=== PATIENT | male | born 1940 | race Caucasian/White ===

== ENCOUNTER 2020-07-15 11:29 | Emergency (ER) | payer MEDICARE, OTHER ==
[2020-07-15] MEDS ORDERED: SODIUM CHLORIDE 0.9% 1,000 ML IV STA (11:47)
[2020-07-15] MEDS ORDERED: ONDANSETRON 4 MG/2 ML VIAL IVP STA (11:47)
[2020-07-15] MEDS ORDERED: HYDROmorphone 0.5 MG/0.5 ML SYRINGE IVP STA (11:47)
[2020-07-15 12:09] LABS: Basophils # (A) 0.1 k/uL (0-0.2); Basophils % (A) 1 %; Eosinophils # (A) 0.4 k/uL (0-0.7); Eosinophils % (A) 7 %; HCT 43.8 % (39.0-53.0); HGB 14.9 gm/dL (13.0-17.5); Lymphocytes # (A) 1.1 k/uL (1.0-4.8); Lymphocytes % (A) 20 %; MCH 32.6 pg (25.0-35.0); MCV 96.1 fL (80.0-100.0); Mean Platelet Volume 7.5; Monocytes # (A) 0.4 k/uL (0-1.0); Monocytes % (A) 7 %; Neutrophils # (A) 3.6 k/uL (1.3-7.7); Neutrophils % (A) 62 %; Platelet Count 245 k/uL (150-450); RBC 4.56 m/uL (4.30-5.90); RDW 12.3 % (11.5-15.5); WBC 5.8 k/uL (3.8-10.6)
[2020-07-15 12:18] LABS: Amorphous Sediment,Urine Occasional /hpf; Appearance,Urine Turbid (Clear); Bacteria,Urine Occasional /hpf; Bilirubin,Urine Negative (Negative); Blood,Urine Large (Negative); Color,Urine Yellow; Glucose,Urine (UA) Negative (Negative); Ketones,Urine Negative (Negative); Leukocyte Esterase,Urine Small (Negative); Nitrite,Urine Negative (Negative); Protein,Urine 1+ (Negative); RBC,Urine >182 /hpf (0-5); Specific Gravity,Urine 1.014 (1.001-1.035); Urobilinogen,Urine <2.0 mg/dL (<2.0); WBC,Urine 56 /hpf (0-5)
[2020-07-15 12:19] LABS: Albumin 4.5 g/dL (3.5-5.0); Calcium 10.1 mg/dL (8.4-10.2); Total Bilirubin 0.7 mg/dL (0.2-1.3); Total Protein 7.5 g/dL (6.3-8.2)
--- NOTE | 2020-07-15 12:34 | XR ---
EXAMINATION TYPE: XR KUB DATE OF EXAM: 07/15/2020 Comparison: 05/20/2016 Clinical History: 80-year-old male abdominal pain Findings: Osteopenia and a severe levoconvex scoliotic deformity of the lumbar spine. No evidence for free intraperitoneal air. Nonobstructive bowel gas pattern. No dilated small bowel or air-fluid levels. There is moderate stool wording. Possible 4 mm right renal calculus. Some prostatic calcifications are also present in the low midline pelvis. Impression: 1. No evidence for free air or bowel obstruction. 2. Moderate stool burden. 3. Possible 4 mm right renal calculus.
[2020-07-15] MEDS ORDERED: KETOROLAC 15 MG/ML 1 ML VIAL IVP STA ×2 (12:39→14:13)
--- NOTE | 2020-07-15 13:24 | ED ---
General Adult HPI - General Chief complaint: Urogenital Stated complaint: Kidney Stone Time Seen by Provider: 07/15/20 11:37 Source: patient, family, RN notes reviewed Mode of arrival: ambulatory Limitations: no limitations - History of Present Illness Initial comments: 80-year-old male with a past medical history of hyperlipidemia presents to the emergency room for a chief complaint of right flank pain 45 minutes. Patient reports that he has a pain in the right flank that radiates into the right lower abdomen. States he recently had a CAT scan and did have a stone in one of his kidneys but was unsure which kidney. Patient believes he may have had a kidney stone before because he did have similar pain prior to this at one time. He admits to nausea right now, denies vomiting. Denies diarrhea. Denies fevers or chills.Patient has no other complaints at this time including shortness of breath, chest pain, abdominal pain, nausea or vomiting, headache, or visual changes. - Related Data Home Medications Medication Instructions Recorded Confirmed Brinzolamide/Brimonidine Tart 1 drop BOTH EYES TID 05/20/16 07/15/20 [Simbrinza 1%-0.2% Eye Drops] Latanoprost [Xalatan 0.005%] 1 drop LEFT EYE HS 05/20/16 07/15/20 Atorvastatin [Lipitor] 40 mg PO Q48H 07/15/20 07/15/20 Esomeprazole Magnesium [NexIUM 20 mg PO Q48H 07/15/20 07/15/20 24Hr] Famotidine 40 mg PO Q48H 07/15/20 07/15/20 Previous Rx's Medication Instructions Recorded HYDROcodone/APAP 5-325MG [[place] 1 tab PO Q6HR PRN #10 tab 07/15/20 5-325] Ondansetron [Zofran ODT] 4 mg PO Q8HR PRN #15 tab 07/15/20 Tamsulosin [Flomax] 0.4 mg PO DAILY #14 cap 07/15/20 Allergies Allergy/AdvReac Type Severity Reaction Status Date / Time No Known Allergies Allergy Verified 07/15/20 12:48 Review of Systems ROS Statement: Those systems with pertinent positive or pertinent negative responses have been documented in the HPI. ROS Other: All systems not noted in ROS Statement are negative. Past Medical History Past Medical History: Hyperlipidemia Additional Past Medical History / Comment(s): Glaucoma; Scoliosis History of Any Multi-Drug Resistant Organisms: None Reported Date of last positivie culture/infection: 2013 MDRO Source:: urine Past Surgical History: Hernia Repair Additional Past Surgical History / Comment(s): Valve in left eye for glaucoma; TURP Past Anesthesia/Blood Transfusion Reactions: No Reported Reaction Past Psychological History: No Psychological Hx Reported Smoking Status: Never smoker Past Alcohol Use History: Daily Past Drug Use History: None Reported - Past Family History Father Family Medical History: Dementia Additional Family Medical History / Comment(s): Father of parkinson's at the age of 82yrs. Mother Family Medical History: Dementia Additional Family Medical History / Comment(s): Mother at the age of 80yrs. General Exam Limitations: no limitations General appearance: alert, in no apparent distress Head exam: Present: atraumatic, normocephalic, normal inspection Eye exam: Present: normal appearance, PERRL, EOMI. Absent: scleral icterus, conjunctival injection, periorbital swelling ENT exam: Present: normal exam, mucous membranes moist Neck exam: Present: normal inspection, full ROM. Absent: tenderness, meningismus Respiratory exam: Present: normal lung sounds bilaterally. Absent: respiratory distress, wheezes, rales, rhonchi, stridor Cardiovascular Exam: Present: regular rate, normal rhythm, normal heart sounds. Absent: systolic murmur, diastolic murmur, rubs, gallop, clicks GI/Abdominal exam: Present: soft, normal bowel sounds. Absent: distended, tenderness, guarding, rebound, rigid Back exam: Present: CVA tenderness (R). Absent: CVA tenderness (L) Course Vital Signs 07/15/20 11:32 Temperature 98.2 F Pulse Rate 87 Respiratory 18 Rate Blood Pressure 148/81 O2 Sat by Pulse 99 Oximetry Medical Decision Making - Medical Decision Making Vitals are stable. CBC CMP unremarkable. Urinalysis does show red blood cells with associated white blood cells. No leukocytosis. CT abdomen and pelvis shows an obstructing 5 mm proximal right ureteral stone with mild right-sided hydronephrosis and hydroureter. Patient was treated with pain medication and is having much better. Patient states his pain has resolved at this time. Patient will be discharged home to follow-up with urology. They re requesting referral to Dr. Worrell specifically. - Lab Data Result diagrams: 07/15/20 11:51 07/15/20 11:51 Lab Results 07/15/20 07/15/20 07/15/20 Range/Units 11:51 11:51 11:51 WBC 5.8 (3.8-10.6) k/uL RBC 4.56 (4.30-5.90) m/uL Hgb 14.9 (13.0-17.5) gm/dL Hct 43.8 (39.0-53.0) % MCV 96.1 (80.0-100.0) fL MCH 32.6 (25.0-35.0) pg MCHC 34.0 (31.0-37.0) g/dL RDW 12.3 (11.5-15.5) % Plt Count 245 (150-450) k/uL MPV 7.5 Neutrophils % 62 % Lymphocytes % 20 % Monocytes % 7 % Eosinophils % 7 % Basophils % 1 % Neutrophils # 3.6 (1.3-7.7) k/uL Lymphocytes # 1.1 (1.0-4.8) k/uL Monocytes # 0.4 (0-1.0) k/uL Eosinophils # 0.4 (0-0.7) k/uL Basophils # 0.1 (0-0.2) k/uL Sodium 138 (137-145) mmol/L Potassium 4.0 (3.5-5.1) mmol/L Chloride 105 (98-107) mmol/L Carbon Dioxide 25 (22-30) mmol/L Anion Gap 8 mmol/L BUN 21 H (9-20) mg/dL Creatinine 0.99 (0.66-1.25) mg/dL Est GFR (CKD-EPI)AfAm 82 (>60 ml/min/1.73 sqM) Est GFR (CKD-EPI)NonAf 71 (>60 ml/min/1.73 sqM) Glucose 137 H (74-99) mg/dL Calcium 10.1 (8.4-10.2) mg/dL Total Bilirubin 0.7 (0.2-1.3) mg/dL AST 28 (17-59) U/L ALT 19 (4-49) U/L Alkaline Phosphatase 58 (38-126) U/L Total Protein 7.5 (6.3-8.2) g/dL Albumin 4.5 (3.5-5.0) g/dL Amylase 46 (30-110) U/L Lipase 493 H (23-300) U/L Urine Color Yellow Urine Appearance Turbid (Clear) Urine pH 7.0 (5.0-8.0) Ur Specific [place] 1.014 (1.001-1.035) Urine Protein 1+ H (Negative) Urine Glucose (UA) Negative (Negative) Urine Ketones Negative (Negative) Urine Blood Large H (Negative) Urine Nitrite Negative (Negative) Urine Bilirubin Negative (Negative) Urine Urobilinogen <2.0 (<2.0) mg/dL Ur Leukocyte Esterase Small H (Negative) Urine RBC >182 H (0-5) /hpf Urine WBC 56 H (0-5) /hpf Amorphous Sediment Occasional H (None) /hpf Urine Bacteria Occasional H (None) /hpf Disposition Clinical Impression: Kidney stone on right side Disposition: HOME SELF-CARE Condition: Good Instructions (If sedation given, give patient instructions): Kidney Stones (ED) Additional Instructions: Please take Motrin for pain. If pain is severe take [place]. Take Flomax daily to help pass the stone. Take Zofran as needed for nausea. Follow up with urology by calling for their next available appointment. Return to the emergency room if patient has any worsening symptoms such as worsening pain, fevers, or inability to tolerate oral intake. Prescriptions: Tamsulosin [Flomax] 0.4 mg PO DAILY #14 cap HYDROcodone/APAP 5-325MG [[place] 5-325] 1 tab PO Q6HR PRN #10 tab PRN Reason: Pain Ondansetron [Zofran ODT] 4 mg PO Q8HR PRN #15 tab PRN Reason: Nausea Is patient prescribed a controlled substance at d/c from ED?: No Referrals: Nonstaff,Physician [Primary Care Provider] - 1-2 days Angel Charles MD [STAFF PHYSICIAN] - 1-2 days Time of Disposition: 15:00
[2020-07-15] MEDS ORDERED: HYDROmorphone 1 MG/ML 1 ML SYRINGE IVP STA (14:13)
--- NOTE | 2020-07-15 14:27 | CT ---
EXAMINATION TYPE: CT abdomen pelvis wo con DATE OF EXAM: 07/15/2020 COMPARISON: 05/20/2016 INDICATION: right flank pain DLP: 361.4 mGycm, Automated exposure control for dose reduction was used. CONTRAST: 0 mL of Isovue 300. Study performed without Oral Contrast TECHNIQUE: Axial images were obtained from above the diaphragm to the pubic rami in the axial plane a t 5 mm thick sections. Reconstructed images are reviewed on the computer in the coronal plane. FINDINGS: Limited CT sections are obtained the lung bases. The lung bases are clear. There is a moderate size hiatal hernia present. CT ABDOMEN: Liver: There is a 1.7 cm cyst within the right lobe liver. Smaller cyst is inferior within the right lobe liver. Spleen: Normal Pancreas: Normal Adrenal glands: The adrenal glands are normal. Gallbladder: Normal Kidneys: No masses are evident. There is a mild right hydronephrosis. Proximal right hydroureter is p rominent. This extends to a nonobstructing 0.5 cm calcification. Series 201 image 45. No cysts are pr esent. There is a 0.3 cm nonobstructing renal stone within the mid posterior left kidney. Aorta: Vascular calcification is within the aorta. Inferior vena cava: Somewhat difficult to visualize. CT PELVIS: Loops of bowel within the abdomen and pelvis are normal. Studies without oral contrast limiting b owel evaluation. Diverticular changes are within the sigmoid colon. Appendix: Not identified. No suspicious dilated tubular structure or inflammatory changes are evident . What may be the appendix within the medial right midabdomen is air-filled nondilated. Urinary bladder: Distended. Urinary bladder wall is visualized appears normal. Genitourinary structures: Markedly enlarged. Prostate calcifications are present Osseous structures: No suspicious lytic or sclerotic lesions. Scoliosis and degenerative facet change s are present. Some calcified disc spaces are noted. IMPRESSIONS: 1. Obstructing 0.5 cm proximal right ureteral stone with mild right hydronephrosis and hydroureter. 2. Nonobstructing left renal stone. 3. Diverticulosis without acute diverticulitis. 4. Moderate size hiatal hernia
[2020-07-15 15:24] VITALS: BP 122/72; PULSE 68; RESP 16; TEMP 97.6
== END 2020-07-15 15:25 | disposition home or self-care (01) ==
LOC: EC 11:29
DX: N13.2 Hydronephrosis with renal and ureteral calculous obstruction (principal); E78.5 Hyperlipidemia, unspecified; H40.9 Unspecified glaucoma; Z79.899 Other long term (current) drug therapy; Z90.79 Acquired absence of other genital organ(s)
CPT/HCPCS: 36415; 80053; 82150; 83690; 85025; 81001; 87086; 74018; 74176; 99285; 96374; 96375 ×2; 96376 ×2; 96361; J2405; J1170 ×2; J1885

== ENCOUNTER 2020-07-19 05:36 | Inpatient (IN) | payer MEDICARE, OTHER ==
[2020-07-19] MEDS ORDERED: SODIUM CHLORIDE 0.9% 1,000 ML IV STA (05:51)
[2020-07-19] MEDS ORDERED: HYDROmorphone 0.5 MG/0.5 ML SYRINGE IVP STA (06:11)
[2020-07-19] MEDS ORDERED: ONDANSETRON 4 MG/2 ML VIAL IVP STA (06:11)
[2020-07-19 06:24] LABS: Basophils % (A) 0 %; Eosinophils # (A) 0.1 k/uL (0-0.7); Eosinophils % (A) 1 %; HCT 42.8 % (39.0-53.0); HGB 13.9 gm/dL (13.0-17.5); Lymphocytes # (A) 0.5 k/uL (1.0-4.8); Lymphocytes % (A) 4 %; MCH 31.2 pg (25.0-35.0); MCHC 32.6 g/dL (31.0-37.0); Mean Platelet Volume 7.1; Monocytes # (A) 0.8 k/uL (0-1.0); Monocytes % (A) 7 %; Neutrophils % (A) 88 %; Platelet Count 222 k/uL (150-450); RBC 4.46 m/uL (4.30-5.90); RDW 12.5 % (11.5-15.5); WBC 12.6 k/uL (3.8-10.6)
[2020-07-19 06:29] LABS: Appearance,Urine Clear (Clear); Bilirubin,Urine Negative (Negative); Blood,Urine Moderate (Negative); Color,Urine Yellow; Glucose,Urine (UA) Negative (Negative); Ketones,Urine Trace (Negative); Leukocyte Esterase,Urine Trace (Negative); Mucus,Urine Rare /hpf; Nitrite,Urine Negative (Negative); PH, Urine 5.5 (5.0-8.0); Protein,Urine Trace (Negative); RBC,Urine 148 /hpf (0-5); Specific Gravity,Urine 1.014 (1.001-1.035); Squamous Epithelial Cell,Urine <1 /hpf (0-4); Urobilinogen,Urine <2.0 mg/dL (<2.0); WBC,Urine 4 /hpf (0-5)
--- NOTE | 2020-07-19 06:29 | ED ---
Abdominal Pain HPI - General Source: patient, RN notes reviewed Mode of arrival: ambulatory Limitations: no limitations <Diaz Chaidez - Last Filed: 07/19/20 07:20> <Vijay Wynn - Last Filed: 07/19/20 07:31> - General Chief Complaint: Abdominal Pain Stated Complaint: poss kidney stone Time Seen by Provider: 07/19/20 05:49 - History of Present Illness Initial Comments: This an 80-year-old male presents emergency Department chief complaint of right flank pain, right-sided abdominal pain. Patient states that he has been dealing with this pain for several days. He has seen urology in office which he saw Dr. Charles in office. Patient's was given multiple options at that time. Patient states that he's been dealing with the pain over the weekend states he cannot tolerate it. Patient contacted Dr. Herrera on-call urologist instructed him to come emergency department today at 6 AM patient has remained NPO . Patient states that the pain is a 7 out of 10 currently. Patient states that he gets nauseated at times. He has been taking oral pain meds and which she states helps occasionally. Patient has no known fever or chills no dysuria. Patient states his urine has been dark. (Diaz Chaidez) - Related Data Home Medications Medication Instructions Recorded Confirmed Brinzolamide/Brimonidine Tart 1 drop BOTH EYES TID 05/20/16 07/15/20 [Simbrinza 1%-0.2% Eye Drops] Latanoprost [Xalatan 0.005%] 1 drop LEFT EYE HS 05/20/16 07/15/20 Atorvastatin [Lipitor] 40 mg PO Q48H 07/15/20 07/15/20 Esomeprazole Magnesium [NexIUM 20 mg PO Q48H 07/15/20 07/15/20 24Hr] Famotidine 40 mg PO Q48H 07/15/20 07/15/20 Previous Rx's Medication Instructions Recorded HYDROcodone/APAP 5-325MG [[place] 1 tab PO Q6HR PRN #10 tab 07/15/20 5-325] Ondansetron [Zofran ODT] 4 mg PO Q8HR PRN #15 tab 07/15/20 Tamsulosin [Flomax] 0.4 mg PO DAILY #14 cap 07/15/20 Allergies Allergy/AdvReac Type Severity Reaction Status Date / Time No Known Allergies Allergy Verified 07/19/20 05:45 Review of Systems ROS Other: All systems not noted in ROS Statement are negative. <DmDiaz Rosalio - Last Filed: 07/19/20 07:20> ROS Other: All systems not noted in ROS Statement are negative. <Vijay Wynn - Last Filed: 07/19/20 07:31> ROS Statement: Those systems with pertinent positive or pertinent negative responses have been documented in the HPI. Past Medical History Past Medical History: Hyperlipidemia Additional Past Medical History / Comment(s): Glaucoma; Scoliosis History of Any Multi-Drug Resistant Organisms: None Reported Date of last positivie culture/infection: 2013 MDRO Source:: urine Past Surgical History: Hernia Repair Additional Past Surgical History / Comment(s): Valve in left eye for glaucoma; TURP Past Anesthesia/Blood Transfusion Reactions: No Reported Reaction Past Psychological History: No Psychological Hx Reported Smoking Status: Never smoker Past Alcohol Use History: Daily Past Drug Use History: None Reported - Past Family History Father Family Medical History: Dementia Additional Family Medical History / Comment(s): Father of parkinson's at the age of 82yrs. Mother Family Medical History: Dementia Additional Family Medical History / Comment(s): Mother at the age of 80yrs. <Diaz Chaidez - Last Filed: 07/19/20 07:20> General Exam Limitations: no limitations General appearance: alert, in no apparent distress Head exam: Present: atraumatic, normocephalic, normal inspection Eye exam: Present: normal appearance, PERRL, EOMI. Absent: scleral icterus, conjunctival injection, periorbital swelling Respiratory exam: Present: normal lung sounds bilaterally. Absent: respiratory distress, wheezes, rales, rhonchi, stridor Cardiovascular Exam: Present: regular rate, normal rhythm, normal heart sounds. Absent: systolic murmur, diastolic murmur, rubs, gallop, clicks GI/Abdominal exam: Present: soft, tenderness (Minimal right-sided), normal bowel sounds. Absent: distended, guarding, rebound, rigid Back exam: Present: CVA tenderness (R) (Minimal). Absent: CVA tenderness (L) Neurological exam: Present: alert, oriented X3 Skin exam: Present: warm, dry, intact, normal color. Absent: rash <Diaz Chaidez - Last Filed: 07/19/20 07:20> Course Vital Signs 07/19/20 05:42 Temperature 99.2 F Pulse Rate 76 Respiratory 18 Rate Blood Pressure 140/81 O2 Sat by Pulse 96 Oximetry Medical Decision Making - Lab Data Result diagrams: 07/19/20 06:09 07/19/20 06:09 <Diaz Chaidez - Last Filed: 07/19/20 07:20> - Lab Data Result diagrams: 07/19/20 06:09 07/19/20 06:09 <Vijay Wynn - Last Filed: 07/19/20 07:31> - Medical Decision Making Case discussed with urologist Dr. Herrera in which the patient be admitted for or. (Diaz Chaidez) I saw this patient in conjunction with the physician ambulance assistant. I performed independent history and physical exam. Agree with case management. I did discuss with Dr. Fernández who will be into see the patient and suspects wi ll go to the OR. (Vijay Wynn) - Lab Data Lab Results 07/19/20 07/19/20 07/19/20 Range/Units 06:09 06:09 06:09 WBC 12.6 H (3.8-10.6) k/uL RBC 4.46 (4.30-5.90) m/uL Hgb 13.9 (13.0-17.5) gm/dL Hct 42.8 (39.0-53.0) % MCV 96.0 (80.0-100.0) fL MCH 31.2 (25.0-35.0) pg MCHC 32.6 (31.0-37.0) g/dL RDW 12.5 (11.5-15.5) % Plt Count 222 (150-450) k/uL MPV 7.1 Neutrophils % 88 % Lymphocytes % 4 % Monocytes % 7 % Eosinophils % 1 % Basophils % 0 % Neutrophils # 11.0 H (1.3-7.7) k/uL Lymphocytes # 0.5 L (1.0-4.8) k/uL Monocytes # 0.8 (0-1.0) k/uL Eosinophils # 0.1 (0-0.7) k/uL Basophils # 0.0 (0-0.2) k/uL Sodium 126 L (137-145) mmol/L Potassium 4.8 (3.5-5.1) mmol/L Chloride 96 L (98-107) mmol/L Carbon Dioxide 26 (22-30) mmol/L Anion Gap 4 mmol/L BUN 22 H (9-20) mg/dL Creatinine 1.26 H (0.66-1.25) mg/dL Est GFR (CKD-EPI)AfAm 61 (>60 ml/min/1.73 sqM) Est GFR (CKD-EPI)NonAf 53 (>60 ml/min/1.73 sqM) Glucose 106 H (74-99) mg/dL Calcium 9.3 (8.4-10.2) mg/dL Total Bilirubin 1.2 (0.2-1.3) mg/dL AST 32 (17-59) U/L ALT 21 (4-49) U/L Alkaline Phosphatase 52 (38-126) U/L Total Protein 6.8 (6.3-8.2) g/dL Albumin 3.8 (3.5-5.0) g/dL Lipase 74 (23-300) U/L Urine Color Yellow Urine Appearance Clear (Clear) Urine pH 5.5 (5.0-8.0) Ur Specific [place] 1.014 (1.001-1.035) Urine Protein Trace H (Negative) Urine Glucose (UA) Negative (Negative) Urine Ketones Trace H (Negative) Urine Blood Moderate H (Negative) Urine Nitrite Negative (Negative) Urine Bilirubin Negative (Negative) Urine Urobilinogen <2.0 (<2.0) mg/dL Ur Leukocyte Esterase Trace H (Negative) Urine RBC 148 H (0-5) /hpf Urine WBC 4 (0-5) /hpf Ur Squamous Epith Cells <1 (0-4) /hpf Urine Mucus Rare H (None) /hpf Disposition <Diaz Chaidez - Last Filed: 07/19/20 07:20> <Vijay Wynn - Last Filed: 07/19/20 07:31> Clinical Impression: Hydronephrosis with urinary obstruction due to ureteral calculus Disposition: ADMITTED IP TO THIS HOSP Condition: Fair Referrals: Nonstaff,Physician [Primary Care Provider] - 1-2 days
[2020-07-19 06:34] LABS: Albumin 3.8 g/dL (3.5-5.0); Calcium 9.3 mg/dL (8.4-10.2); Total Bilirubin 1.2 mg/dL (0.2-1.3); Total Protein 6.8 g/dL (6.3-8.2)
[2020-07-19 06:43] LABS: Potassium 4.8 mmol/L (3.5-5.1)
[2020-07-19] MEDS ORDERED: HYDROmorphone 0.5 MG/0.5 ML SYRINGE IVP PRN (07:20)
[2020-07-19] MEDS ORDERED: NALOXONE 0.4 MG/ML 1 ML VIAL IV PRN (07:20)
[2020-07-19] MEDS ORDERED: ONDANSETRON 4 MG/2 ML VIAL IVP PRN (07:20)
[2020-07-19] MEDS ORDERED: SODIUM CHLORIDE 0.9% 1,000 ML IV SCH (07:30)
[2020-07-19] MEDS ORDERED: ceFAZolin 2 GM in SODIUM CHLORIDE 0.9% 100 ML IVPB SCH (09:30)
--- NOTE | 2020-07-19 09:41 | P.GSHP ---
History of Present Illness H&P Date: 07/19/20 Chief Complaint: Right renal colic The patient is an 80-year-old white male who was evaluated in the emergency room for right renal colic in 07/15/2020. A CT scan showed a 5 mm right proximal ureteral calculus, causing mild right hydronephrosis. He has experienced significant pain intermittently since that time, requiring that he take 2 [place] tablets every 3 hours. The pain radiates from the right flank to the right teste. He presented to the emergency room this morning with intractable symptoms. - Constitutional Constitutional: Reports weakness, Denies chills, Denies fever - Gastrointestinal Gastrointestinal: Reports nausea - Genitourinary (Female) Genitourinary: Reports flank pain, Denies dysuria Past Medical History Past Medical History: Hyperlipidemia Additional Past Medical History / Comment(s): Glaucoma; Scoliosis History of Any Multi-Drug Resistant Organisms: None Reported Date of last positivie culture/infection: 2013 MDRO Source:: urine Past Surgical History: Hernia Repair Additional Past Surgical History / Comment(s): Valve in left eye for glaucoma; TURP Past Anesthesia/Blood Transfusion Reactions: No Reported Reaction Smoking Status: Never smoker - Past Family History Father Family Medical History: Dementia Additional Family Medical History / Comment(s): Father of parkinson's at the age of 82yrs. Mother Family Medical History: Dementia Additional Family Medical History / Comment(s): Mother at the age of 80yrs. Medications and Allergies Home Medications Medication Instructions Recorded Confirmed Type Brinzolamide/Brimonidine Tart 1 drop LEFT EYE BID 05/20/16 07/19/20 History [Simbrinza 1%-0.2% Eye Drops] Latanoprost [Xalatan 0.005%] 1 drop LEFT EYE HS 05/20/16 07/19/20 History Atorvastatin [Lipitor] 40 mg PO Q48H 07/15/20 07/19/20 History Esomeprazole Magnesium [NexIUM 20 mg PO Q48H 07/15/20 07/19/20 History 24Hr] Famotidine 40 mg PO Q48H 07/15/20 07/19/20 History HYDROcodone/APAP 5-325MG [[place] 1 tab PO Q6HR PRN #10 tab 07/15/20 07/19/20 Rx 5-325] Ondansetron [Zofran ODT] 4 mg PO Q8HR PRN #15 tab 07/15/20 07/19/20 Rx Tamsulosin [Flomax] 0.4 mg PO DAILY #14 cap 07/15/20 07/19/20 Rx Allergies Allergy/AdvReac Type Severity Reaction Status Date / Time No Known Allergies Allergy Verified 07/19/20 07:54 Surgical - Exam Vital Signs Temp Pulse Resp BP Pulse Ox 99.2 F 76 18 140/81 96 07/19/20 05:42 07/19/20 05:42 07/19/20 05:42 07/19/20 05:42 07/19/20 05:42 - General well developed, well nourished, no distress - Neck no masses, trachea midline - Respiratory normal respiratory effort - Abdomen Abdomen: soft, non tender, no guarding, no rigid, no rebound - Genitourinary normal penis with no external lesions, testicles non-tender - Psychiatric oriented to time, oriented to person, oriented to place, speech is normal, memory intact Results - Labs 07/19/20 06:09 07/19/20 06:09 Abnormal Lab Results - Last 24 Hours (Table) 07/19/20 07/19/20 07/19/20 Range/Units 06:09 06:09 06:09 WBC 12.6 H (3.8-10.6) k/uL Neutrophils # 11.0 H (1.3-7.7) k/uL Lymphocytes # 0.5 L (1.0-4.8) k/uL Sodium 126 L (137-145) mmol/L Chloride 96 L (98-107) mmol/L BUN 22 H (9-20) mg/dL Creatinine 1.26 H (0.66-1.25) mg/dL Glucose 106 H (74-99) mg/dL Urine Protein Trace H (Negative) Urine Ketones Trace H (Negative) Urine Blood Moderate H (Negative) Ur Leukocyte Esterase Trace H (Negative) Urine RBC 148 H (0-5) /hpf Urine Mucus Rare H (None) /hpf Diabetes panel 07/19/20 Range/Units 06:09 Sodium 126 L (137-145) mmol/L Potassium 4.8 (3.5-5.1) mmol/L Chloride 96 L (98-107) mmol/L Carbon Dioxide 26 (22-30) mmol/L BUN 22 H (9-20) mg/dL Creatinine 1.26 H (0.66-1.25) mg/dL Glucose 106 H (74-99) mg/dL Calcium 9.3 (8.4-10.2) mg/dL AST 32 (17-59) U/L ALT 21 (4-49) U/L Alkaline Phosphatase 52 (38-126) U/L Total Protein 6.8 (6.3-8.2) g/dL Albumin 3.8 (3.5-5.0) g/dL Calcium panel 07/19/20 Range/Units 06:09 Calcium 9.3 (8.4-10.2) mg/dL Albumin 3.8 (3.5-5.0) g/dL Pituitary panel 07/19/20 Range/Units 06:09 Sodium 126 L (137-145) mmol/L Potassium 4.8 (3.5-5.1) mmol/L Chloride 96 L (98-107) mmol/L Carbon Dioxide 26 (22-30) mmol/L BUN 22 H (9-20) mg/dL Creatinine 1.26 H (0.66-1.25) mg/dL Glucose 106 H (74-99) mg/dL Calcium 9.3 (8.4-10.2) mg/dL Adrenal panel 07/19/20 Range/Units 06:09 Sodium 126 L (137-145) mmol/L Potassium 4.8 (3.5-5.1) mmol/L Chloride 96 L (98-107) mmol/L Carbon Dioxide 26 (22-30) mmol/L BUN 22 H (9-20) mg/dL Creatinine 1.26 H (0.66-1.25) mg/dL Glucose 106 H (74-99) mg/dL Calcium 9.3 (8.4-10.2) mg/dL Total Bilirubin 1.2 (0.2-1.3) mg/dL AST 32 (17-59) U/L ALT 21 (4-49) U/L Alkaline Phosphatase 52 (38-126) U/L Total Protein 6.8 (6.3-8.2) g/dL Albumin 3.8 (3.5-5.0) g/dL - Imaging CT scan - abdomen: report reviewed, image reviewed Assessment and Plan (1) Hydronephrosis with urinary obstruction due to ureteral calculus Current Visit: Yes Status: Acute Code(s): N13.2 - HYDRONEPHROSIS WITH RENAL AND URETERAL CALCULOUS OBSTRUCTION SNOMED Code(s): 124880893 (2) Calculus of ureter Current Visit: Yes Status: Acute Code(s): N20.1 - CALCULUS OF URETER SNOMED Code(s): 49898636 (3) UTI (urinary tract infection) Current Visit: Yes Status: Acute Code(s): N39.0 - URINARY TRACT INFECTION, SITE NOT SPECIFIED SNOMED Code(s): 62937746 Plan: I had a lengthy discussion with the patient regarding his obstructing right ureteral calculus. Urine culture obtained on July 15 showed an E. coli UTI. He has not been treated with antibiotics. In view of this, ureteroscopy with laser lithotripsy is contraindicated. I intend to perform cystoscopy with right ureteral stent insertion. Once the infection has cleared, we can be electively scheduled to undergo ureteroscopy with laser lithotripsy at the time of his stent removal. This rationale has been reviewed in detail with the patient and his . They are aware of potential risks associated with stent placement, which include anesthesia, ureteral injury, and inability to successfully place the stent. In either of the 2 latter scenarios, nephrostomy tube placement may be required. Incidentally, the bladder appeared distended on the computed tomography scan. The patient has previously undergone a TURP but feels he empties his bladder incompletely. If a urethral stricture or vesical neck contracture is encountered, he will require an internal urethrotomy. Time with Patient: Greater than 30
[2020-07-19] MEDS ORDERED: HYDROcodone/APAP 5-325MG 1 EACH TAB PO PRN (10:08)
[2020-07-19] MEDS ORDERED: ONDANSETRON ODT 4 MG TAB PO PRN (10:08)
[2020-07-19] MEDS ORDERED: TAMSULOSIN 0.4 MG CAP.ER.24H PO SCH (10:15)
--- NOTE | 2020-07-19 10:18 | XR ---
EXAMINATION TYPE: XR KUB DATE OF EXAM: 07/19/2020 9:55 AM CLINICAL HISTORY: Ureter calculus TECHNIQUE: Single supine KUB image of the abdomen is obtained. COMPARISON: CT abdomen and pelvis and abdominal x-ray 4 days ago. FINDINGS: Unable to distinctly visualize prior 4 to 5 mm right proximal ureter calculus. Increasing o verlying right-sided fecal colonic debris noted making evaluation suboptimal. Overall nonspecific bow el gas pattern. Marked underlying levoconvex scoliosis redemonstrated. Scattered prostatic calcificat ions. Lung bases remain clear. IMPRESSION: As above.
[2020-07-19] MEDS ORDERED: DORZOLAMIDE HCL 2% DROPS 10 ML BTL LEFT EYE SCH (11:00)
[2020-07-19] MEDS ORDERED: BRIMONIDINE TARTRATE 0.2% DROPS 5 ML BTL LEFT EYE SCH (11:00)
[2020-07-19] MEDS ORDERED: ATORVASTATIN 40 MG TAB PO SCH (11:00)
[2020-07-19] MEDS ORDERED: FAMOTIDINE 20 MG TAB PO SCH (11:00)
[2020-07-19] MEDS ORDERED: fentaNYL (PF) 50 MCG/ML 2 ML AMP ONE (16:30)
[2020-07-19] MEDS ORDERED: LIDOCAINE 1% INJ 10MG/ML (20 ML MDV) ONE (16:30)
[2020-07-19] MEDS ORDERED: IOPAMIDOL-370 50ML BTL MISCELLANE ONE (16:30)
[2020-07-19] MEDS ORDERED: LACTATED RINGERS 1,000 ML IV ONE (16:30)
[2020-07-19] MEDS ORDERED: PROPOFOL 10 MG/ML 20 ML VIAL IV ONE (16:30)
--- NOTE | 2020-07-19 17:19 | P.OP ---
Date of Procedure: 07/19/20 Preoperative Diagnosis: Right hydronephrosis secondary to right ureteral calculus, UTI Postoperative Diagnosis: Same Procedure(s) Performed: Cystoscopy, right retrograde pyelogram, right ureteral stent insertion Anesthesia: ROSA Surgeon: Chris Herrera Estimated Blood Loss (ml): 0 IV fluids (ml): 400 Pathology: none sent Condition: stable Disposition: PACU Indications for Procedure: The patient is an 80-year-old white male who was evaluated in the emergency room for right renal colic in 07/15/2020. A CT scan showed a 5 mm right proximal ureteral calculus, causing mild right hydronephrosis. Urine culture shows an E. coli UTI. He has experienced intractable symptoms, and weight loss undergo right ureteral stent insertion. Operative Findings: Obstructing right mid-ureteral calculus. Description of Procedure: The patient was taken to the operating room and placed in the dorsolithotomy position, with legs supported in Gera stirrups. The external genitalia was prepped and draped sterilely. The 30 lens was used to introduce the 19-Malagasy Stortz cystoscopic sheath through the urethra and into the bladder under direct vision. The prostatic urethra was open due to prior TURP. The bladder was examined in its entirety. Both ureteral orifices were of normal anatomic location and configuration. No tumors or foreign bodies were seen. An angle- tip 0.035 inch Glidewire was passed through the cystoscope. The right ureteral orifice was cannulated, and the Glidewire was slowly advanced up to the renal pelvis. A 24 cm, 6-Malagasy double-J ureteral stent was placed over the wire. Proper stent positioning was verified fluoroscopically and endoscopically. Urine which is somewhat cloudy in appearance drained through the stent. The bladder was emptied and the cystoscope removed. The patient tolerated the procedure well was taken to the recovery room in stable condition.
[2020-07-19 19:25] VITALS: BP 171/92; PULSE 84; RESP 20; TEMP 97.5
[2020-07-19] MEDS ORDERED: LATANOPROST 0.005% OPHTH DROPS 2.5 ML BTL LEFT EYE SCH (21:00)
[2020-07-19] MEDS ORDERED: BRINZOLAMIDE LEFT EYE SCH (21:00)
[2020-07-19] MEDS ORDERED: BRIMONIDINE TART LEFT EYE SCH (21:00)
--- NOTE | 2020-07-19 21:05 | FL ---
EXAMINATION TYPE: FL guidance operating room DATE OF EXAM: 07/19/2020 CLINICAL HISTORY: Right kidney stone TECHNIQUE: Fluoroscopy. COMPARISON: CT abdomen and pelvis July 15, 2020. FINDINGS: Fluoroscopic guidance was provided during right ureter stent insertion procedure performed by Dr. Herrera. A total of 40 seconds of fluoroscopic time was utilized during the procedure and 3 s pot images are acquired. IMPRESSION: As Above.
[2020-07-20] MEDS ORDERED: PANTOPRAZOLE 40 MG TABLET PO SCH (07:30)
== END 2020-07-19 19:54 | disposition home or self-care (01) | DRG 661 ==
LOC: EC 05:36 → 6NMEDSUR 07:30
PROVIDERS: ADMIT Urology; ATTEND Urology
PROC: 0T768DZ Dilation of Right Ureter with Intraluminal Device, Via Natural or Artificial Opening Endoscopic (ICD-10-PCS; principal; 2020-07-19 13:30)
PROC: BT1D1ZZ Fluoroscopy of Right Kidney, Ureter and Bladder using Low Osmolar Contrast (ICD-10-PCS; principal; 2020-07-19 13:30)
DX: N13.6 Pyonephrosis (principal); B96.20 Unspecified Escherichia coli [E. coli] as the cause of diseases classified elsewhere; E78.5 Hyperlipidemia, unspecified; M41.9 Scoliosis, unspecified; H40.9 Unspecified glaucoma; Z79.899 Other long term (current) drug therapy; Z82.0 Family history of epilepsy and other diseases of the nervous system
CPT/HCPCS: 36415; 74018; 74176; 80053; 81001; 82150; 83690; 85025; 87077; 87086; 87186; 96361; 96374; 96375; 96376; 99284; 99285

== ENCOUNTER 2020-07-29 08:16 | Day surgery (SDC) | payer MEDICARE, OTHER ==
[2020-07-23 15:35] VITALS: BMI 22.6
--- NOTE | 2020-07-28 12:44 | P.GSHP ---
History of Present Illness H&P Date: 07/28/20 80 yo with severe3 kyphoscoliosis with a right ureteral stone and stent who comes for ureteroscopy and stent and stone removal The stent was placed for an obstructing stone with hydronephrosis/uti. Past Medical History Past Medical History: GERD/Reflux, Hyperlipidemia Additional Past Medical History / Comment(s): Glaucoma left eye; severe Scoliosis, osteoporosis, osteopenia, hiatal hernia, kidney stones, on Rx for UTI History of Any Multi-Drug Resistant Organisms: None Reported Date of last positivie culture/infection: 2013 MDRO Source:: urine Past Surgical History: Hernia Repair, Prostate Surgery Additional Past Surgical History / Comment(s): Valve implant in left eye for glaucoma; TURP, hemorrhoidectomy, surgery left eye for glaucoma, 07/19/20- cystoscopy/ stent Past Anesthesia/Blood Transfusion Reactions: No Reported Reaction Additional Past Anesthesia/Blood Transfusion Reaction / Comment(s): never had transfusion Smoking Status: Never smoker - Past Family History Father Family Medical History: Dementia Additional Family Medical History / Comment(s): Father of parkinson's at the age of 82yrs. Mother Family Medical History: Dementia Additional Family Medical History / Comment(s): Mother at the age of 80yrs. Sister(s) Family Medical History: Cancer Medications and Allergies Home Medications Medication Instructions Recorded Confirmed Type Brinzolamide/Brimonidine Tart 1 drop LEFT EYE BID 05/20/16 07/23/20 History [Simbrinza 1%-0.2% Eye Drops] Latanoprost [Xalatan 0.005%] 1 drop LEFT EYE HS 05/20/16 07/23/20 History Atorvastatin [Lipitor] 40 mg PO MOWEFR 07/15/20 07/23/20 History Esomeprazole Magnesium [NexIUM 20 mg PO MOWEFR 07/15/20 07/23/20 History 24Hr] Famotidine 40 mg PO SUTUTHSA 07/15/20 07/23/20 History HYDROcodone/APAP 5-325MG [[place] 1 tab PO Q6HR PRN #10 tab 07/15/20 07/23/20 Rx 5-325] Cephalexin [Keflex] 500 mg PO Q8HR 1 Days #42 cap 07/19/20 07/23/20 Rx Aspirin [Adult Low Dose Aspirin EC] 81 mg PO DAILY 07/23/20 07/23/20 History Mahin/D3/Mag11/Zinc/[address]/[place]/Bor 2 each PO DAILY 07/23/20 07/23/20 History [Caltrate 600+D Plus Tablet] Cholecalciferol [Vitamin D3 (25 2,000 unit PO DAILY 07/23/20 07/23/20 History Mcg = 1000 Iu)] Allergies Allergy/AdvReac Type Severity Reaction Status Date / Time No Known Allergies Allergy Verified 07/23/20 15:08 Surgical - Exam - General well developed, well nourished, no distress - Eyes PERRL - ENT no hearing loss - Neck trachea midline - Respiratory normal expansion, normal respiratory effort - Cardiovascular Rhythm: regular - Abdomen Abdomen: soft, non tender - Genitourinary normal penis with no external lesions, testicles present - Integumentary no growths - Neurologic normal coordination, normal sensation - Musculoskeletal severe kypho scoliosis normal posture - Psychiatric oriented to time, oriented to person, oriented to place, speech is normal, memory intact Results - Imaging Abdominal x-ray: report reviewed, image reviewed CT scan - abdomen: report reviewed, image reviewed CT scan - pelvis: report reviewed, image reviewed Assessment and Plan Assessment: Impression: Right ureteral stone with stent Plan: Right ureteroscopy with laser lithotripsy
[~2020-07-29 08:16] MED LIST: HYDROmorphone 0.5 MG/0.5 ML SYRINGE IVP PRN; LACTATED RINGERS 1,000 ML IV SCH; ONDANSETRON 4 MG/2 ML VIAL IVP ONE
--- NOTE | 2020-07-29 08:33 | XR ---
EXAMINATION TYPE: XR KUB DATE OF EXAM: 07/29/2020 8:26 AM CLINICAL HISTORY: Right ureteric calculus. TECHNIQUE: Single supine KUB image of the abdomen is are obtained. COMPARISON: CT abdomen and pelvis July 15, 2020. KUB X-Ray Generic July 19, 2020. FINDINGS: Likely stable proximal for a 5 mm right ureteral calculus near the proximal portion of the new double-J right ureter stent. Significant underlying rotary scoliosis redemonstrated. Overall nonobstructive bowel gas pattern. Sca ttered pelvic phleboliths and prostatic calcifications over the lower pelvis. IMPRESSION: As above.
[2020-07-29] MEDS ORDERED: PROPOFOL 10 MG/ML 20 ML VIAL IV ONE (09:10)
[2020-07-29] MEDS ORDERED: fentaNYL (PF) 50 MCG/ML 2 ML AMP ONE (09:10)
[2020-07-29] MEDS ORDERED: ePHEDrine SULFATE/0.9% NACL/PF 50 MG/5 ML SYRINGE IV ONE (09:10)
[2020-07-29] MEDS ORDERED: LIDOCAINE 1% INJ 10MG/ML (20 ML MDV) ONE (09:10)
[2020-07-29] MEDS ORDERED: MIDAZOLAM 2 MG/2 ML VIAL ONE (09:10)
--- NOTE | 2020-07-29 10:08 | P.OP ---
Date of Procedure: 07/29/20 Preoperative Diagnosis: Right ureteral calculus with stent Postoperative Diagnosis: Same Procedure(s) Performed: Cystoscopy, removal double-J catheter right, right ureteroscopy laser lithotripsy Anesthesia: MARY JANEA Surgeon: Angel Charles Estimated Blood Loss (ml): 0 Pathology: none sent Condition: stable Disposition: PACU Indications for Procedure: The patient is 80. He recently had a double-J catheter placed for an infected ureteral stone on the right side in the proximal ureter. As for stent and stone removal. the patient has severe kyphoscoliosis. Description of Procedure: Patient is brought to the operating suite. He is given a successful general endotracheal anesthesia. He's placed lithotomy position with sterile prep and drape. Cystoscopy Foroblique lens and 21-Sami sheath identifies a normal urethra. The prostate does show some obstruction. Upon entering the bladder the right double-J catheters identified. The bladder is irrigated thoroughly and inspected is normal. The double-J catheters on the right is grasped and pulled to the urethral meatus. Through the double-J catheter an 035 wires passed up into the right kidney. Over the wires passed a [id number] reentry sheath. The inner sheath is removed. Through the outer sheath these flexible ureteroscope was passed up to the stone. With the 200 laser probe the stone was broken into fine sand. There are no big fragments to basket. I do pullout ureteroscopy and there is not enough edema to leave a stent. The bladder strain the patient is awakened and returned recovery room good condition Impression: Successful right ureteroscopy laser lithotripsy and stent removal. Recommendations the patient be discharged home upon recovery and found the office in one week.
[2020-07-29 10:23] VITALS: TEMP 96.9
--- NOTE | 2020-07-29 10:30 | FL ---
EXAMINATION TYPE: FL guidance operating room DATE OF EXAM: 07/29/2020 CLINICAL HISTORY: Right ureter stone. TECHNIQUE: Fluoroscopy. COMPARISON: Abdominal x-ray from earlier today. FINDINGS: Fluoroscopic guidance was provided during right ureter calculus cystoscopy with lithotrips y treatment procedure performed by Dr. Charles. A total of 38 seconds of fluoroscopic time was utilize d during the procedure and 1 spot images was acquired. Single image shows advancement of catheter tub e into the ureter for treatment. IMPRESSION: As Above.
[2020-07-29] MEDS ORDERED: LACTATED RINGERS 1,000 ML IV ONE (10:42)
[2020-07-29 11:35] VITALS: RESP 16
[2020-07-29] MEDS ORDERED: ACETAMINOPHEN TAB 500 MG TAB ONE (12:04)
[2020-07-29] MEDS ORDERED: ACETAMINOPHEN TAB 500 MG TAB PO ONE (12:05)
[2020-07-29 13:58] VITALS: BP 149/78; PULSE 77
== END 2020-07-29 14:25 | disposition home or self-care (01) ==
LOC: OR 08:16
PROVIDERS: ATTEND Urology
DX: N20.1 Calculus of ureter (principal); N39.0 Urinary tract infection, site not specified; Z46.6 Encounter for fitting and adjustment of urinary device; K21.9 Gastro-esophageal reflux disease without esophagitis; E78.5 Hyperlipidemia, unspecified; H40.9 Unspecified glaucoma; M41.9 Scoliosis, unspecified; M81.0 Age-related osteoporosis without current pathological fracture; Z87.442 Personal history of urinary calculi; Z87.19 Personal history of other diseases of the digestive system; Z98.890 Other specified postprocedural states; Z96.89 Presence of other specified functional implants; Z90.79 Acquired absence of other genital organ(s); Z79.899 Other long term (current) drug therapy; Z79.82 Long term (current) use of aspirin; Z81.8 Family history of other mental and behavioral disorders; Z80.9 Family history of malignant neoplasm, unspecified
CPT/HCPCS: 74018; 52353; C1769; J2250; J2405; J0690; J2001; J3010; J2704

== ENCOUNTER 2020-07-30 14:42 | Inpatient (IN) | payer MEDICARE, OTHER ==
[2020-07-30] MEDS ORDERED: ACETAMINOPHEN TAB 500 MG TAB PO STA (15:10)
--- NOTE | 2020-07-30 15:59 | ED ---
General Adult HPI - General Chief complaint: Fever Stated complaint: Fever/Post Surgery Time Seen by Provider: 07/30/20 14:57 Source: patient, RN notes reviewed Mode of arrival: ambulatory Limitations: no limitations - History of Present Illness Initial comments: 80-year-old male with a past medical history of GERD, hyperlipidemia, glaucoma presents to the emergency room for fever. On 07/19/2020 patient had a cystoscopy and right ureteral stent placed by Dr. Herrera for a 5 mm stone. Yesterday patient had a right ureteroscopy laser lithotripsy and stent removal with Dr. Charles. Patient states he is not having any complications or pain until today at approximately 1 PM. Patient developed chills. Patient states he is shaking. He denies any abdominal or back pain. Admits to minimal pain with urination but nothing too concerning. Denies flank pain.Patient has no other complaints at this time including shortness of breath, chest pain, abdominal pain, nausea or vomiting, headache, or visual changes. - Related Data Home Medications Medication Instructions Recorded Confirmed Brinzolamide/Brimonidine Tart 1 drop LEFT EYE BID 05/20/16 07/23/20 [Simbrinza 1%-0.2% Eye Drops] Latanoprost [Xalatan 0.005%] 1 drop LEFT EYE HS 05/20/16 07/23/20 Atorvastatin [Lipitor] 40 mg PO MOWEFR 07/15/20 07/23/20 Esomeprazole Magnesium [NexIUM 20 mg PO MOWEFR 07/15/20 07/23/20 24Hr] Famotidine 40 mg PO SUTUTHSA 07/15/20 07/23/20 Aspirin [Adult Low Dose Aspirin EC] 81 mg PO DAILY 07/23/20 07/23/20 Mahin/D3/Mag11/Zinc/Surgery Attendant/Geryr/Bor 2 each PO DAILY 07/23/20 07/23/20 [Caltrate 600+D Plus Tablet] Cholecalciferol [Vitamin D3 (25 2,000 unit PO DAILY 07/23/20 07/23/20 Mcg = 1000 Iu)] Previous Rx's Medication Instructions Recorded HYDROcodone/APAP 5-325MG [[place] 1 tab PO Q6HR PRN #10 tab 07/15/20 5-325] Cephalexin [Keflex] 500 mg PO Q8HR 1 Days #42 cap 07/19/20 Allergies Allergy/AdvReac Type Severity Reaction Status Date / Time No Known Allergies Allergy Verified 07/30/20 14:46 Review of Systems ROS Statement: Those systems with pertinent positive or pertinent negative responses have been documented in the HPI. ROS Other: All systems not noted in ROS Statement are negative. Past Medical History Past Medical History: GERD/Reflux, Hyperlipidemia Additional Past Medical History / Comment(s): Glaucoma left eye; severe Scoliosis, osteoporosis, osteopenia, hiatal hernia, kidney stones, on Rx for UTI History of Any Multi-Drug Resistant Organisms: None Reported Date of last positivie culture/infection: 2013 MDRO Source:: urine Past Surgical History: Hernia Repair, Prostate Surgery Additional Past Surgical History / Comment(s): Valve implant in left eye for glaucoma; TURP, hemorrhoidectomy, surgery left eye for glaucoma, 07/19/20- cystoscopy/ stent Past Anesthesia/Blood Transfusion Reactions: No Reported Reaction Additional Past Anesthesia/Blood Transfusion Reaction / Comment(s): never had transfusion Past Psychological History: No Psychological Hx Reported Smoking Status: Never smoker Past Alcohol Use History: Occasional Past Drug Use History: None Reported - Past Family History Father Additional Family Medical History / Comment(s): Father of parkinson's at the age of 82yrs. Mother Additional Family Medical History / Comment(s): Mother at the age of 80yrs. Sister(s) Family Medical History: Cancer General Exam Limitations: no limitations General appearance: alert Head exam: Present: atraumatic Eye exam: Present: normal appearance, PERRL, EOMI. Absent: scleral icterus ENT exam: Present: normal exam, mucous membranes moist Neck exam: Present: normal inspection, full ROM. Absent: tenderness Respiratory exam: Present: normal lung sounds bilaterally. Absent: respiratory distress Cardiovascular Exam: Present: regular rate, normal rhythm, normal heart sounds GI/Abdominal exam: Present: soft, normal bowel sounds. Absent: distended, tenderness, guarding, rebound, rigid Back exam: Absent: CVA tenderness (R), CVA tenderness (L) Course Vital Signs 07/30/20 07/30/20 14:44 17:02 Temperature 101.0 F H 102.2 F H Pulse Rate 90 103 H Respiratory 18 20 Rate Blood Pressure 159/83 150/85 O2 Sat by Pulse 98 95 Oximetry Medical Decision Making - Medical Decision Making Patient is febrile here in the emergency room. Patient did have stent placement for a kidney stone on the third as well as removal of the stent yesterday with lithotripsy. No issues until today at 1 PM. Patient was endotracheally intubated for anesthesia. Fever of 102 in the emergency room with a white count of 13 and left shift. CMP unremarkable. Urinalysis does not show any evidence of infection. Urine culture is ordered. Chest x-ray did show increased interstitial density an atypical pneumonia. Coronavirus negative. Case discussed with Dr. Shelley. Given patient was recently intubated he will be started on azithromycin and vancomycin and cefepime. Patient will be admitted and urology will be consulted given recent surgery. - Lab Data Result diagrams: 07/30/20 16:05 07/30/20 16:05 Lab Results 07/30/20 07/30/20 07/30/20 Range/Units 15:10 15:32 16:05 WBC 13.6 H (3.8-10.6) k/uL RBC 4.48 (4.30-5.90) m/uL Hgb 14.4 (13.0-17.5) gm/dL Hct 43.0 (39.0-53.0) % MCV 96.0 (80.0-100.0) fL MCH 32.1 (25.0-35.0) pg MCHC 33.4 (31.0-37.0) g/dL RDW 12.3 (11.5-15.5) % Plt Count 357 (150-450) k/uL MPV 6.7 Neutrophils % 92 % Lymphocytes % 2 % Monocytes % 4 % Eosinophils % 1 % Basophils % 1 % Neutrophils # 12.5 H (1.3-7.7) k/uL Lymphocytes # 0.3 L (1.0-4.8) k/uL Monocytes # 0.5 (0-1.0) k/uL Eosinophils # 0.2 (0-0.7) k/uL Basophils # 0.1 (0-0.2) k/uL Sodium (137-145) mmol/L Potassium (3.5-5.1) mmol/L Chloride (98-107) mmol/L Carbon Dioxide (22-30) mmol/L Anion Gap mmol/L BUN (9-20) mg/dL Creatinine (0.66-1.25) mg/dL Est GFR (CKD-EPI)AfAm (>60 ml/min/1.73 sqM) Est GFR (CKD-EPI)NonAf (>60 ml/min/1.73 sqM) Glucose (74-99) mg/dL Plasma Lactic Acid Abelino (0.7-2.0) mmol/L Calcium (8.4-10.2) mg/dL Total Bilirubin (0.2-1.3) mg/dL AST (17-59) U/L ALT (4-49) U/L Alkaline Phosphatase (38-126) U/L Total Protein (6.3-8.2) g/dL Albumin (3.5-5.0) g/dL Urine Color Yellow Urine Appearance Clear (Clear) Urine pH 6.5 (5.0-8.0) Ur Specific [place] 1.016 (1.001-1.035) Urine Protein Trace H (Negative) Urine Glucose (UA) Negative (Negative) Urine Ketones Negative (Negative) Urine Blood Negative (Negative) Urine Nitrite Negative (Negative) Urine Bilirubin Negative (Negative) Urine Urobilinogen 2.0 (<2.0) mg/dL Ur Leukocyte Esterase Negative (Negative) Coronavirus (PCR) Not Detected (Not Detectd) 07/30/20 07/30/20 Range/Units 16:05 16:05 WBC (3.8-10.6) k/uL RBC (4.30-5.90) m/uL Hgb (13.0-17.5) gm/dL Hct (39.0-53.0) % MCV (80.0-100.0) fL MCH (25.0-35.0) pg MCHC (31.0-37.0) g/dL RDW (11.5-15.5) % Plt Count (150-450) k/uL MPV Neutrophils % % Lymphocytes % % Monocytes % % Eosinophils % % Basophils % % Neutrophils # (1.3-7.7) k/uL Lymphocytes # (1.0-4.8) k/uL Monocytes # (0-1.0) k/uL Eosinophils # (0-0.7) k/uL Basophils # (0-0.2) k/uL Sodium 137 (137-145) mmol/L Potassium 3.9 (3.5-5.1) mmol/L Chloride 103 (98-107) mmol/L Carbon Dioxide 27 (22-30) mmol/L Anion Gap 7 mmol/L BUN 14 (9-20) mg/dL Creatinine 1.08 (0.66-1.25) mg/dL Est GFR (CKD-EPI)AfAm 74 (>60 ml/min/1.73 sqM) Est GFR (CKD-EPI)NonAf 64 (>60 ml/min/1.73 sqM) Glucose 102 H (74-99) mg/dL Plasma Lactic Acid Abelino 1.4 (0.7-2.0) mmol/L Calcium 9.8 (8.4-10.2) mg/dL Total Bilirubin 0.6 (0.2-1.3) mg/dL AST 28 (17-59) U/L ALT 23 (4-49) U/L Alkaline Phosphatase 67 (38-126) U/L Total Protein 7.5 (6.3-8.2) g/dL Albumin 4.3 (3.5-5.0) g/dL Urine Color Urine Appearance (Clear) Urine pH (5.0-8.0) Ur Specific [place] (1.001-1.035) Urine Protein (Negative) Urine Glucose (UA) (Negative) Urine Ketones (Negative) Urine Blood (Negative) Urine Nitrite (Negative) Urine Bilirubin (Negative) Urine Urobilinogen (<2.0) mg/dL Ur Leukocyte Esterase (Negative) Coronavirus (PCR) (Not Detectd) Disposition Clinical Impression: Fever, Pneumonia Disposition: ADMITTED IP TO THIS HOSP Is patient prescribed a controlled substance at d/c from ED?: No Referrals: None,Stated [Primary Care Provider] - 1-2 days Time of Disposition: 17:37
[2020-07-30 16:02] LABS: Appearance,Urine Clear (Clear); Bilirubin,Urine Negative (Negative); Blood,Urine Negative (Negative); Color,Urine Yellow; Glucose,Urine (UA) Negative (Negative); Ketones,Urine Negative (Negative); Leukocyte Esterase,Urine Negative (Negative); Nitrite,Urine Negative (Negative); PH, Urine 6.5 (5.0-8.0); Protein,Urine Trace (Negative); Specific Gravity,Urine 1.016 (1.001-1.035)
[2020-07-30 16:08] LABS: Basophils # (A) 0.1 k/uL (0-0.2); Basophils % (A) 1 %; Eosinophils # (A) 0.2 k/uL (0-0.7); Eosinophils % (A) 1 %; HGB 14.4 gm/dL (13.0-17.5); Lymphocytes # (A) 0.3 k/uL (1.0-4.8); Lymphocytes % (A) 2 %; MCH 32.1 pg (25.0-35.0); MCHC 33.4 g/dL (31.0-37.0); Mean Platelet Volume 6.7; Monocytes # (A) 0.5 k/uL (0-1.0); Monocytes % (A) 4 %; Neutrophils # (A) 12.5 k/uL (1.3-7.7); Neutrophils % (A) 92 %; Platelet Count 357 k/uL (150-450); RBC 4.48 m/uL (4.30-5.90); RDW 12.3 % (11.5-15.5); WBC 13.6 k/uL (3.8-10.6)
[2020-07-30] MEDS: SODIUM CHLORIDE 0.9% 500 ML 500 ML IV SCH ×2 (16:11→17:00)
[2020-07-30 16:18] LABS: Albumin 4.3 g/dL (3.5-5.0); Calcium 9.8 mg/dL (8.4-10.2); Potassium 3.9 mmol/L (3.5-5.1); Total Bilirubin 0.6 mg/dL (0.2-1.3); Total Protein 7.5 g/dL (6.3-8.2)
--- NOTE | 2020-07-30 16:41 | XR ---
EXAMINATION TYPE: XR chest 1V portable DATE OF EXAM: 07/30/2020 Comparison: 11/22/2011 Clinical History: 80-year-old male with fever Findings: Heart were limited sized. Increased interstitial opacities. No kaila consolidation or pleural effusio n. Moderate sized hiatal hernia. S-shaped scoliosis. Impression: 1. Increased interstitial density. Atypical pneumonia is in the differential. 2. S-shaped scoliosis and moderate sized hiatal hernia.
[2020-07-30] MEDS ORDERED: IBUPROFEN 600 MG TAB PO STA (17:13)
[2020-07-30] MEDS ORDERED: AZITHROMYCIN 500 MG in SODIUM CHLORIDE 0.9% 250 ML IVPB STA (17:27)
[2020-07-30] MEDS ORDERED: cefTRIAXone IN SWFI 1,000 MG/10 ML SYRINGE IVP STA (17:27)
[2020-07-30] MEDS ORDERED: CEFEPIME 2 GM in SODIUM CHLORIDE 0.9% 100 ML IVPB STA (17:33)
[2020-07-30] MEDS ORDERED: VANCOMYCIN IV PER PHARMACY 1 EACH MISC MISCELLANE PRN (17:33)
[2020-07-30] MEDS ORDERED: ACETAMINOPHEN TAB 325 MG TAB PO PRN (17:37)
[2020-07-30] MEDS ORDERED: VANCOMYCIN 1,000 MG in SODIUM CHLORIDE 0.9% 250 ML IVPB STA (17:37)
[2020-07-30] MEDS ORDERED: HYDROmorphone 0.5 MG/0.5 ML SYRINGE IVP PRN (17:37)
[2020-07-30] MEDS ORDERED: NALOXONE 0.4 MG/ML 1 ML VIAL IV PRN (17:37)
[2020-07-30] MEDS ORDERED: ONDANSETRON 4 MG/2 ML VIAL IVP PRN (17:37)
[2020-07-30] MEDS ORDERED: IBUPROFEN 400 MG TAB PO PRN (17:37)
[2020-07-30] MEDS: SODIUM CHLORIDE 0.9% 1,000 ML IV SCH (18:08)
[2020-07-30] MEDS ORDERED: HYDROcodone/APAP 5-325MG 1 EACH TAB PO PRN (23:04)
--- NOTE | 2020-07-30 23:06 | P.HPIM ---
History of Present Illness H&P Date: 07/30/20 Chief Complaint: Fever pT. IS A 80-year-old male with a known history of hyperlipidemia, GERD, glaucoma left eye, severe scoliosis and osteoporosis and history of renal stones was initially seen in the hospital due to obstructing right ureteral calculi. Patient was also diagnosed with urinary tract infection. Patient followed with urology after completion of antibiotic course for urinary tract infection. Patient was seen by urology on 07/29/2020 and had cystoscopy, removal double-J catheter right and right ureteroscopy laser lithotripsy was done. Patient felt better after going home and today afternoon patient developed fever at around 1 PM in the afternoon. Did have chills and felt shaky. Otherwise denies any cough or sputum production. Denies any abdominal pain or back pain. No dysuria or hematuria. Otherwise no headache or dizziness or lightheadedness. Patient presented to ER for evaluation. T-max is 102.2. Pulse ox is 95% on room air. Chest x-ray showed increased interstitial density. Atypical pneumonia is in differential. S-shaped scoliosis and a moderate sized hiatal hernia. Patient was started on antibiotics for possible pneumonia. COVID-19 PCR is negative. UA negative for infection Laboratory data showed WBC 13.6, hemoglobin 14.4 and platelets 357 absolute lymphocyte count is 0.3 Review of Systems Constitutional: fever and chills. No generalized weakness or weight loss. Abdomen: Patient denied nausea vomiting and diarrhea and abdominal pain. Cardiovascular: Patient denies any chest pain or short of breath no palpitations. Respiratory: patient denied any cough or sputum production. No shortness of breath Neurologic: Patient denied any numbness or tingling headache. Musculoskeletal: Patient denies any complaints of joint swelling or deformity. Skin: Negative Psychiatric: Negative Endocrine: No heat or cold intolerance. No recent weight gain. Genitourinary: No dysuria or hematuria. All other 14 point ROS negative except the above Past Medical History Past Medical History: GERD/Reflux, Hyperlipidemia Additional Past Medical History / Comment(s): Glaucoma left eye; severe Scoliosis, osteoporosis, osteopenia, hiatal hernia, kidney stones, on Rx for UTI History of Any Multi-Drug Resistant Organisms: None Reported Date of last positivie culture/infection: 2013 MDRO Source:: urine Past Surgical History: Hernia Repair, Prostate Surgery Additional Past Surgical History / Comment(s): Valve implant in left eye for glaucoma; TURP, hemorrhoidectomy, surgery left eye for glaucoma, 07/19/20- cystoscopy/ stent Past Anesthesia/Blood Transfusion Reactions: No Reported Reaction Additional Past Anesthesia/Blood Transfusion Reaction / Comment(s): never had transfusion Past Psychological History: No Psychological Hx Reported Additional Psychological History / Comment(s): . Smoking Status: Never smoker Past Alcohol Use History: Occasional Additional Past Alcohol Use History / Comment(s): . Past Drug Use History: None Reported - Past Family History Father Additional Family Medical History / Comment(s): Father of parkinson's at the age of 82yrs. Mother Additional Family Medical History / Comment(s): Mother at the age of 80yrs. Sister(s) Family Medical History: Cancer Medications and Allergies Home Medications Medication Instructions Recorded Confirmed Type Brinzolamide/Brimonidine Tart 1 drop LEFT EYE BID 05/20/16 07/30/20 History [Simbrinza 1%-0.2% Eye Drops] Latanoprost [Xalatan 0.005%] 1 drop LEFT EYE HS 05/20/16 07/30/20 History Atorvastatin [Lipitor] 40 mg PO MOWEFR 07/15/20 07/30/20 History Esomeprazole Magnesium [NexIUM 20 mg PO MOWEFR 07/15/20 07/30/20 History 24Hr] HYDROcodone/APAP 5-325MG [[place] 1 tab PO Q6HR PRN #10 tab 07/15/20 07/30/20 Rx 5-325] Cephalexin [Keflex] 500 mg PO Q8HR 1 Days #42 cap 07/19/20 07/30/20 Rx Aspirin [Adult Low Dose Aspirin EC] 81 mg PO DAILY 07/23/20 07/30/20 History Mahin/D3/Mag11/Zinc/Materials Inspector/Gerry/Bor 2 each PO DAILY 07/23/20 07/30/20 History [Caltrate 600+D Plus Tablet] Cholecalciferol [Vitamin D3 (25 2,000 unit PO DAILY 07/23/20 07/30/20 History Mcg = 1000 Iu)] Omeprazole [PriLOSEC] 20 mg PO SUTUTHSA 07/30/20 07/30/20 History Allergies Allergy/AdvReac Type Severity Reaction Status Date / Time No Known Allergies Allergy Verified 07/30/20 17:46 Physical Exam Vitals: Vital Signs Temp Pulse Pulse Resp BP BP Pulse Ox 07/30/20 21:04 99.6 F 98 20 105/66 95 07/30/20 20:00 98 07/30/20 18:16 101.9 F H 07/30/20 17:02 102.2 F H 103 H 20 150/85 95 07/30/20 14:44 101.0 F H 90 18 159/83 98 Intake and Output 07/30/20 07/30/20 07/31/20 14:59 22:59 06:59 Other: Voiding Method Toilet Urinal Weight 53.524 kg 53.524 kg PHYSICAL EXAMINATION: Patient is lying in the bed comfortably, no acute distress, awake alert and oriented.. HEENT: Normocephalic. Neck is supple. Pupils reactive. Nostrils clear. Oral cavity is moist. Ears reveal no drainage. Neck reveals no JVD, carotid bruits, or thyromegaly. CHEST EXAMINATION: Trachea is central. Symmetrical expansion.Bilateral diffuse crackles and coarse sounds. No wheezing.. CARDIAC: Normal S1, S2 with no gallops. No murmurs ABDOMEN: Soft. Bowel sounds normal. No organomegaly. No abdominal bruits. Extremities: reveal no edema. No clubbing or cyanosis Neurologically awake, alert, oriented x3 with well-coordinated movements. No focal deficits noted Skin: No rash or skin lesions. Psychiatric: Coperative. Nonsuicidal Musculoskeletal: No joint swelling or deformity. Normal range of motion.Scoliosis. Results CBC & Chem 7: 07/30/20 16:05 07/30/20 16:05 Labs: Abnormal Lab Results - Last 24 Hours (Table) 07/30/20 07/30/20 07/30/20 Range/Units 15:32 16:05 16:05 WBC 13.6 H (3.8-10.6) k/uL Neutrophils # 12.5 H (1.3-7.7) k/uL Lymphocytes # 0.3 L (1.0-4.8) k/uL Glucose 102 H (74-99) mg/dL Urine Protein Trace H (Negative) Thrombosis Risk Factor Assmnt - DVT/VTE Prophylaxis DVT/VTE Prophylaxis: Pharmacologic Prophylaxis ordered - Choose All That Apply Any of the Below Risk Factors Present?: Yes Each Factor Represents 1 point: Medical pt on bed rest Other Risk Factors: Yes Each Risk Factor Represents 3 Points: Age 75 years or older Thrombosis Risk Factor Assessment Total Risk Factor Score: 4 Thrombosis Risk Factor Assessment Level: Moderate Risk Assessment and Plan Assessment: Atypical pneumonia. Possible aspiration versus HCAP. Sepsis secondary to above. Rule out COVID-19 pneumonia. Status post cystoscopy removal double-J catheter right history of ureteroscopy a nd laser lithotripsy on 07/29/2020 Right-sided obstructing renal calculus and UTI on 07/19/2020 Hyperlipidemia GERD Moderate-sized hiatal hernia Glaucoma left eye Severe scoliosis Osteoporosis History of TURP, hemorrhoidectomy DVT prophylaxis with heparin subcu Plan: Patient will be continued IV hydration and broad-spectrum antibiotics. Follow- up culture reports. Pro calcitonin level will be ordered. Urinalysis is negative. COVID-19 PCR is negative. Follow-up inflammatory markers. Continue with home medications and further recommendations based on the clinical course.Discussed with his at bedside in detail. Time with Patient: Greater than 30
[2020-07-30] MEDS ORDERED: NON FORMULARY DRUG (Omeprazole 20 MG Capsule.Dr) PO SCH (23:15)
[2020-07-30] MEDS ORDERED: BRIMONIDINE TARTRATE 0.2% DROPS 5 ML BTL BOTH EYES SCH (23:30)
[2020-07-30] MEDS: LATANOPROST 0.005% OPHTH DROPS 2.5 ML BTL LEFT EYE SCH (23:54)
[2020-07-31] MEDS: CEFEPIME 2 GM in SODIUM CHLORIDE 0.9% 100 ML IVPB SCH ×3 (00:14→16:56)
[2020-07-31] MEDS: BRIMONIDINE TARTRATE 0.2% DROPS 5 ML BTL LEFT EYE SCH ×3 (00:15→20:30)
[2020-07-31] MEDS: DORZOLAMIDE HCL 2% DROPS 10 ML BTL LEFT EYE SCH ×3 (00:15→20:30)
[2020-07-31] MEDS: ASPIRIN 81 MG PO SCH (08:13)
[2020-07-31 08:14] LABS: Basophils % (A) 0 %; Eosinophils % (A) 0 %; HCT 39.8 % (39.0-53.0); HGB 12.8 gm/dL (13.0-17.5); Lymphocytes # (A) 0.5 k/uL (1.0-4.8); Lymphocytes % (A) 2 %; MCH 31.5 pg (25.0-35.0); MCHC 32.1 g/dL (31.0-37.0); MCV 98.1 fL (80.0-100.0); Monocytes # (A) 0.7 k/uL (0-1.0); Monocytes % (A) 3 %; Neutrophils % (A) 94 %; Platelet Count 352 k/uL (150-450); RBC 4.06 m/uL (4.30-5.90); RDW 12.7 % (11.5-15.5); WBC 23.4 k/uL (3.8-10.6)
[2020-07-31] MEDS: CALCIUM CARB-VIT D 500 MG-5 MCG TAB PO SCH (08:14)
[2020-07-31] MEDS: CHOLECALCIFEROL 1,000 UNIT TAB PO SCH (08:14)
[2020-07-31] MEDS: PANTOPRAZOLE 40 MG TABLET PO SCH (08:14)
[2020-07-31] MEDS: SODIUM CHLORIDE 0.9% 1,000 ML IV SCH ×2 (08:14→16:56)
[2020-07-31] MEDS ORDERED: ATORVASTATIN 40 MG TAB PO SCH (09:00)
[2020-07-31] MEDS: HEPARIN SODIUM,PORCINE 5,000 UNIT/ML 1 ML VIAL SQ SCH ×2 (11:18→20:31)
[2020-07-31] MEDS ORDERED: VANCOMYCIN 1,000 MG in SODIUM CHLORIDE 0.9% 250 ML IVPB SCH (12:00)
[2020-07-31] MEDS ORDERED: bisacodyL 5 MG TABLET.DR PO PRN (16:59)
[2020-07-31] MEDS ORDERED: AZITHROMYCIN 500 MG in SODIUM CHLORIDE 0.9% 250 ML IVPB SCH (18:00)
--- NOTE | 2020-07-31 18:43 | P.GSCN ---
History of Present Illness Consult date: 07/31/20 Reason for Consult: History of ureteral stone History of present illness: Mr Gary is an 80-year-old male admitted to the hospital with fever. He is status post right ureteroscopy by Dr. Charles for right ureteral on 07/29/20. Patient was discharged home postoperatively. But on postop day #1 started developing fever at 102 and chills. Denies any gross hematuria, dysuria, but has been complaining of frequency and urgency. His UA on presentation is negative for UTI, denies any flank pain. He's afebrile today. Review of Systems - Constitutional Reports chills, Reports fever - Respiratory Denies cough, Denies 7 - Gastrointestinal Reports as per HPI - Genitourinary Reports kidney stones, Denies dysuria, Denies flank pain, Denies hematuria - Neurological Denies headaches, Denies syncope Past Medical History Past Medical History: GERD/Reflux, Hyperlipidemia Additional Past Medical History / Comment(s): Glaucoma left eye; severe Scoliosis, osteoporosis, osteopenia, hiatal hernia, kidney stones, on Rx for UTI History of Any Multi-Drug Resistant Organisms: None Reported Year Discovered:: 2013 MDRO Source:: urine Past Surgical History: Hernia Repair, Prostate Surgery Additional Past Surgical History / Comment(s): Valve implant in left eye for glaucoma; TURP, hemorrhoidectomy, surgery left eye for glaucoma, 07/19/20- cystoscopy/ stent Past Anesthesia/Blood Transfusion Reactions: No Reported Reaction Additional Past Anesthesia/Blood Transfusion Reaction / Comm: never had transfusion Past Psychological History: No Psychological Hx Reported Additional Psychological History / Comment(s): . Smoking Status: Never smoker Past Alcohol Use History: Occasional Additional Past Alcohol Use History / Comment(s): . Past Drug Use History: None Reported - Past Family History Father Additional Family Medical History / Comment(s): Father of parkinson's at the age of 82yrs. Mother Additional Family Medical History / Comment(s): Mother at the age of 80yrs. Sister(s) Family Medical History: Cancer Medications and Allergies Home Medications Medication Instructions Recorded Confirmed Type Brinzolamide/Brimonidine Tart 1 drop LEFT EYE BID 05/20/16 07/30/20 History [Simbrinza 1%-0.2% Eye Drops] Latanoprost [Xalatan 0.005%] 1 drop LEFT EYE HS 05/20/16 07/30/20 History Atorvastatin [Lipitor] 40 mg PO MOWEFR 07/15/20 07/30/20 History Esomeprazole Magnesium [NexIUM 20 mg PO MOWEFR 07/15/20 07/30/20 History 24Hr] HYDROcodone/APAP 5-325MG [[place] 1 tab PO Q6HR PRN #10 tab 07/15/20 07/30/20 Rx 5-325] Cephalexin [Keflex] 500 mg PO Q8HR 1 Days #42 cap 07/19/20 07/30/20 Rx Aspirin [Adult Low Dose Aspirin EC] 81 mg PO DAILY 07/23/20 07/30/20 History Mahin/D3/Mag11/Zinc/Chute Builder/Gerry/Bor 2 each PO DAILY 07/23/20 07/30/20 History [Caltrate 600+D Plus Tablet] Cholecalciferol [Vitamin D3 (25 2,000 unit PO DAILY 07/23/20 07/30/20 History Mcg = 1000 Iu)] Omeprazole [PriLOSEC] 20 mg PO SUTUTHSA 07/30/20 07/30/20 History Allergies Allergy/AdvReac Type Severity Reaction Status Date / Time No Known Allergies Allergy Verified 07/30/20 17:46 Surgical - Exam Vital Signs Temp Pulse Resp BP Pulse Ox 101.0 F H 90 18 159/83 98 07/30/20 14:44 07/30/20 14:44 07/30/20 14:44 07/30/20 14:44 07/30/20 14:44 - General well developed, well nourished, no distress, no pain - Eyes PERRL, normal ocular movement - ENT normal nares, normal mucosa - Respiratory normal expansion, normal respiratory effort - Abdomen Abdomen: soft, non tender - Psychiatric oriented to time, oriented to person, oriented to place Results - Labs 07/31/20 07:50 07/30/20 16:05 Abnormal Lab Results - Last 24 Hours (Table) 07/31/20 07/31/20 Range/Units 07:50 07:50 WBC 23.4 H (3.8-10.6) k/uL RBC 4.06 L (4.30-5.90) m/uL Hgb 12.8 L (13.0-17.5) gm/dL Neutrophils # 22.0 H (1.3-7.7) k/uL Lymphocytes # 0.5 L (1.0-4.8) k/uL Procalcitonin 5.97 H (0.02-0.09) ng/mL Microbiology - Last 24 Hours (Table) 07/30/20 16:07 Blood Culture - Preliminary Blood No Growth after 24 hours 07/30/20 16:05 Blood Culture - Preliminary Blood No Growth after 24 hours 07/30/20 18:16 Urine Culture - Preliminary Urine,Clean Catch Assessment and Plan Assessment: 80-year-old male admitted to the hospital with fevers. He is status post right ureteroscopy by Dr. Charles for right-sided ureteral stone on July 29. Today he's been having worsening leukocytosis, but has been afebrile, he is otherwise. UA on presentation is negative Plan: -Continue antibiotics -F/U on urine cultures -If remains afebrile tomorrow and WBC trends down, then okay for discharge from urology standpoint with PO antibiotics. Of note he has history of singh susceptible E. coli. If leukocytosis worsens or starts spiking fever tomorrow a nd we'll obtain a CT abdomen and pelvis. -Can keep his F/U with Dr Charles
[2020-07-31 18:48] LABS: African American GFR (CKD) 97.1 (60.0-200.0); Anion Gap 9.4 mmol/L (4.00-12.00); BUN/Creat Ratio 18.75 Ratio (12.00-20.00); C Reactive Protein 13.8 mg/dL (0.0-0.8); Calcium 9.1 mg/dL (8.7-10.3); Carbon Dioxide 21.6 mmol/L (21.6-31.8); Non-African American GFR(CKD) 83.8 (60.0-200.0); Potassium 3.8 mmol/L (3.5-5.5)
[2020-07-31 18:56] LABS: Ferritin 227.5 ng/mL (22.0-322.0)
[2020-07-31] MEDS: LATANOPROST 0.005% OPHTH DROPS 2.5 ML BTL LEFT EYE SCH (20:31)
[2020-08-01] MEDS: SODIUM CHLORIDE 0.9% 1,000 ML IV SCH ×2 (02:01→14:56)
[2020-08-01] MEDS ORDERED: VANCOMYCIN 1,000 MG in SODIUM CHLORIDE 0.9% 250 ML IVPB SCH (04:00)
[2020-08-01] MEDS: CEFEPIME 2 GM in SODIUM CHLORIDE 0.9% 100 ML IVPB SCH ×2 (05:27→15:33)
[2020-08-01 06:39] LABS: Basophils % (A) 0 %; Eosinophils # (A) 0.1 k/uL (0-0.7); Eosinophils % (A) 1 %; HCT 33.8 % (39.0-53.0); HGB 11.3 gm/dL (13.0-17.5); Lymphocytes # (A) 0.7 k/uL (1.0-4.8); Lymphocytes % (A) 4 %; MCH 32.1 pg (25.0-35.0); MCHC 33.4 g/dL (31.0-37.0); MCV 96.2 fL (80.0-100.0); Mean Platelet Volume 6.9; Monocytes # (A) 0.9 k/uL (0-1.0); Monocytes % (A) 5 %; Neutrophils # (A) 16.2 k/uL (1.3-7.7); Neutrophils % (A) 90 %; Platelet Count 259 k/uL (150-450); RBC 3.51 m/uL (4.30-5.90); RDW 12.3 % (11.5-15.5); WBC 18.1 k/uL (3.8-10.6)
[2020-08-01] MEDS: HEPARIN SODIUM,PORCINE 5,000 UNIT/ML 1 ML VIAL SQ SCH ×2 (07:51→20:55)
[2020-08-01] MEDS: CALCIUM CARB-VIT D 500 MG-5 MCG TAB PO SCH (07:52)
[2020-08-01] MEDS: PANTOPRAZOLE 40 MG TABLET PO SCH (07:52)
[2020-08-01] MEDS: CHOLECALCIFEROL 1,000 UNIT TAB PO SCH (07:52)
[2020-08-01] MEDS: ASPIRIN 81 MG PO SCH (07:52)
[2020-08-01] MEDS: BRIMONIDINE TARTRATE 0.2% DROPS 5 ML BTL LEFT EYE SCH ×2 (07:53→15:19)
[2020-08-01] MEDS: DORZOLAMIDE HCL 2% DROPS 10 ML BTL LEFT EYE SCH ×2 (07:53→15:20)
--- NOTE | 2020-08-01 09:03 | XR ---
EXAMINATION TYPE: XR chest 1V DATE OF EXAM: 08/01/2020 COMPARISON: Chest x-ray 07/30/2020 HISTORY: Pneumonia TECHNIQUE: Single frontal view of the chest is obtained. FINDINGS: There is a marked scoliotic curvature present. Aorta is dense. Heart size is stable, appea nehemias may be accentuated by technique. Retrocardiac density with central lucency is again noted. No e vident pneumothorax or pleural effusion, patchy left lower lobe density noted. IMPRESSION: Difficult to exclude left lower lobe pneumonia. There is an hiatal hernia with partial i ntrathoracic stomach.
--- NOTE | 2020-08-01 10:17 | P.PN ---
Subjective Progress Note Date: 07/31/20 Principal diagnosis: Pneumonia possible healthcare associated pT. IS A 80-year-old male with a known history of hyperlipidemia, GERD, glaucoma left eye, severe scoliosis and osteoporosis and history of renal stones was initially seen in the hospital due to obstructing right ureteral calculi. Patient was also diagnosed with urinary tract infection. Patient followed with urology after completion of antibiotic course for urinary tract infection. Patient was seen by urology on 07/29/2020 and had cystoscopy, removal double-J catheter right and right ureteroscopy laser lithotripsy was done. Patient felt better after going home and today afternoon patient developed fever at around 1 PM in the afternoon. Did have chills and felt shaky. Otherwise denies any cough or sputum production. Denies any abdominal pain or back pain. No dysuria or hematuria. Otherwise no headache or dizziness or lightheadedness. Patient presented to ER for evaluation. T-max is 102.2. Pulse ox is 95% on room air. Chest x-ray showed increased interstitial density. Atypical pneumonia is in differential. S-shaped scoliosis and a moderate sized hiatal hernia. Patient was started on antibiotics for possible pneumonia. COVID-19 PCR is negative. UA negative for infection Laboratory data showed WBC 13.6, hemoglobin 14.4 and platelets 357 absolute lymphocyte count is 0.3 07/31/2020 Patient is currently resting in the bed comfortably. Shortness of breath is better. Patient was febrile yesterday evening. Currently afebrile. Next and continued on broad-spectrum antibiotics. Does have cough without sputum production. No nausea vomiting or abdominal pain or diarrhea. No dysuria or hematuria. Laboratory data showed WBC 23.4. No headache or dizziness or lightheadedness. Current medications reviewed. Objective - Vital Signs Vital signs: Vital Signs Temp 99.3 F 07/31/20 13:44 Pulse 76 07/31/20 13:44 Resp 18 07/31/20 13:44 BP 102/55 07/31/20 13:44 Pulse Ox 97 07/31/20 13:44 Intake & Output 07/30/20 07/31/20 07/31/20 18:59 06:59 18:59 Output Total 800 500 Balance -800 -500 Weight 53.524 kg 53.524 kg Output: Urine 800 500 Other: Voiding Method Toilet Toilet Urinal Urinal - Exam PHYSICAL EXAMINATION: Patient is lying in the bed comfortably, no acute distress, awake alert and oriented.. HEENT: Normocephalic. Neck is supple. Pupils reactive. Nostrils clear. Oral cavity is moist. Ears reveal no drainage. Neck reveals no JVD, carotid bruits, or thyromegaly. CHEST EXAMINATION: Trachea is central. Symmetrical expansion. Bibasilar crackles. Lung kevin clear to auscultation and percussion. CARDIAC: Normal S1, S2 with no gallops. No murmurs ABDOMEN: Soft. Bowel sounds normal. No organomegaly. No abdominal bruits. Extremities: reveal no edema. No clubbing or cyanosis Neurologically awake, alert, oriented x3 with well-coordinated movements. No focal deficits noted Skin: No rash or skin lesions. Psychiatric: Coperative. Nonsuicidal Musculoskeletal: No joint swelling or deformity. Normal range of motion. - Labs CBC & Chem 7: 08/01/20 06:11 07/31/20 07:50 Labs: Abnormal Lab Results - Last 24 Hours (Table) 07/31/20 07/31/20 Range/Units 07:50 07:50 WBC 23.4 H (3.8-10.6) k/uL RBC 4.06 L (4.30-5.90) m/uL Hgb 12.8 L (13.0-17.5) gm/dL Neutrophils # 22.0 H (1.3-7.7) k/uL Lymphocytes # 0.5 L (1.0-4.8) k/uL Procalcitonin 5.97 H (0.02-0.09) ng/mL Microbiology - Last 24 Hours (Table) 07/30/20 18:16 Urine Culture - Preliminary Urine,Clean Catch Assessment and Plan Assessment: Atypical pneumonia. Possible aspiration versus HCAP. Sepsis secondary to above. Elevated Pro calcitonin level. Ruled out COVID-19 pneumonia. Status post cystoscopy removal double-J catheter right history of ureteroscopy and laser lithotripsy on 07/29/2020 Right-sided obstructing renal calculus and UTI on 07/19/2020 Hyperlipidemia GERD Moderate-sized hiatal hernia Glaucoma left eye Severe scoliosis Osteoporosis History of TURP, hemorrhoidectomy DVT prophylaxis with heparin subcu Plan: Patient will be continued IV hydration and broad-spectrum antibiotics. Follow- up culture reports. Pro calcitonin level is elevated. Urinalysis is negative. COVID-19 PCR is negative. Follow-up inflammatory markers. Continue with home medications and further recommendations based on the clinical course. Discussed with his at bedside in detail. Time with Patient: Greater than 30
[2020-08-01 10:51] LABS: African American GFR (CKD) 102.6 (60.0-200.0); Albumin/Globulin Ratio 1.88 (1.60-3.17); Anion Gap 5.2 mmol/L (4.00-12.00); BUN/Creat Ratio 24.29 Ratio (12.00-20.00); Calcium 8.5 mg/dL (8.7-10.3); Carbon Dioxide 20.8 mmol/L (21.6-31.8); Globulin 1.6 g/dL (1.6-3.3); Non-African American GFR(CKD) 88.5 (60.0-200.0); Potassium 3.6 mmol/L (3.5-5.5); Total Bilirubin 0.8 mg/dL (0.2-1.2); Total Protein 4.6 g/dL (6.2-8.2)
[2020-08-01] MEDS: VANCOMYCIN 1,000 MG in SODIUM CHLORIDE 0.9% 250 ML IVPB SCH (15:34)
[2020-08-01] MEDS ORDERED: AZITHROMYCIN 500 MG TAB PO SCH (18:00)
[2020-08-01] MEDS: LATANOPROST 0.005% OPHTH DROPS 2.5 ML BTL LEFT EYE SCH (20:56)
[2020-08-02] MEDS: VANCOMYCIN 1,000 MG in SODIUM CHLORIDE 0.9% 250 ML IVPB SCH (04:32)
[2020-08-02] MEDS: CEFEPIME 2 GM in SODIUM CHLORIDE 0.9% 100 ML IVPB SCH (04:33)
[2020-08-02 06:50] LABS: Basophils % (A) 0 %; Eosinophils # (A) 0.2 k/uL (0-0.7); Eosinophils % (A) 1 %; HGB 11.5 gm/dL (13.0-17.5); Lymphocytes # (A) 0.8 k/uL (1.0-4.8); Lymphocytes % (A) 7 %; MCH 31.6 pg (25.0-35.0); MCV 95.8 fL (80.0-100.0); Mean Platelet Volume 7.2; Monocytes # (A) 0.6 k/uL (0-1.0); Monocytes % (A) 5 %; Neutrophils # (A) 9.8 k/uL (1.3-7.7); Neutrophils % (A) 84 %; Platelet Count 306 k/uL (150-450); RBC 3.66 m/uL (4.30-5.90); RDW 12.6 % (11.5-15.5); WBC 11.7 k/uL (3.8-10.6)
[2020-08-02 08:00] VITALS: BP 132/67; PULSE 77; RESP 17; TEMP 97.9
[2020-08-02] MEDS: BRIMONIDINE TARTRATE 0.2% DROPS 5 ML BTL LEFT EYE SCH (08:33)
[2020-08-02] MEDS: HEPARIN SODIUM,PORCINE 5,000 UNIT/ML 1 ML VIAL SQ SCH (08:33)
[2020-08-02] MEDS: PANTOPRAZOLE 40 MG TABLET PO SCH (08:33)
[2020-08-02] MEDS: CALCIUM CARB-VIT D 500 MG-5 MCG TAB PO SCH (08:33)
[2020-08-02] MEDS: ASPIRIN 81 MG PO SCH (08:33)
[2020-08-02] MEDS: DORZOLAMIDE HCL 2% DROPS 10 ML BTL LEFT EYE SCH (08:33)
[2020-08-02 09:37] LABS: African American GFR (CKD) 102.6 (60.0-200.0); Anion Gap 3.6 mmol/L (4.00-12.00); BUN/Creat Ratio 18.57 Ratio (12.00-20.00); Calcium 8.7 mg/dL (8.7-10.3); Carbon Dioxide 23.4 mmol/L (21.6-31.8); Non-African American GFR(CKD) 88.5 (60.0-200.0); Potassium 3.2 mmol/L (3.5-5.5)
[2020-08-02] MEDS ORDERED: Potassium Replacement Protocol 1 EACH MISC MISCELLANE PRN (10:00)
[2020-08-02] MEDS: CHOLECALCIFEROL 1,000 UNIT TAB PO SCH (10:12)
--- NOTE | 2020-08-02 10:34 | P.PN ---
Subjective Progress Note Date: 08/01/20 Principal diagnosis: Pneumonia possible healthcare associated pT. IS A 80-year-old male with a known history of hyperlipidemia, GERD, glaucoma left eye, severe scoliosis and osteoporosis and history of renal stones was initially seen in the hospital due to obstructing right ureteral calculi. Patient was also diagnosed with urinary tract infection. Patient followed with urology after completion of antibiotic course for urinary tract infection. Patient was seen by urology on 07/29/2020 and had cystoscopy, removal double-J catheter right and right ureteroscopy laser lithotripsy was done. Patient felt better after going home and today afternoon patient developed fever at around 1 PM in the afternoon. Did have chills and felt shaky. Otherwise denies any cough or sputum production. Denies any abdominal pain or back pain. No dysuria or hematuria. Otherwise no headache or dizziness or lightheadedness. Patient presented to ER for evaluation. T-max is 102.2. Pulse ox is 95% on room air. Chest x-ray showed increased interstitial density. Atypical pneumonia is in differential. S-shaped scoliosis and a moderate sized hiatal hernia. Patient was started on antibiotics for possible pneumonia. COVID-19 PCR is negative. UA negative for infection Laboratory data showed WBC 13.6, hemoglobin 14.4 and platelets 357 absolute lymphocyte count is 0.3 07/31/2020 Patient is currently resting in the bed comfortably. Shortness of breath is better. Patient was febrile yesterday evening. Currently afebrile. Next and continued on broad-spectrum antibiotics. Does have cough without sputum production. No nausea vomiting or abdominal pain or diarrhea. No dysuria or hematuria. Laboratory data showed WBC 23.4. No headache or dizziness or lightheadedness. 08/01/2020 Patient is currently resting in the bed comfortably. Shortness of breath is much improved now. Patient has been afebrile. We will continue the IV antibiotics and monitor closely. IV fluids will be discontinued and patient is able to tolerate oral diet better today. Anticipate discharge of the patient is afebrile and white count is still elevated today but trending down. Follow-up CBC and BMP tomorrow. No chest pain. No dysuria or hematuria. No headache or dizziness or lightheadedness. Inflammatory markers are not elevated. Unlikely Covid pneumonia. Current medications reviewed. Objective - Vital Signs Vital signs: Vital Signs Temp 97.9 F 01/17/21 07:59 Pulse 77 08/02/20 07:59 Resp 17 08/02/20 07:59 BP 132/67 08/02/20 07:59 Pulse Ox 97 08/02/20 07:59 Intake & Output 08/01/20 08/02/20 08/02/20 18:59 06:59 18:59 Output Total 400 Balance -400 Output: Urine 400 Other: Voiding Method Toilet Toilet Urinal Urinal # Voids 2 - Exam PHYSICAL EXAMINATION: Patient is lying in the bed comfortably, no acute distress, awake alert and oriented.. HEENT: Normocephalic. Neck is supple. Pupils reactive. Nostrils clear. Oral cavity is moist. Ears reveal no drainage. Neck reveals no JVD, carotid bruits, or thyromegaly. CHEST EXAMINATION: Trachea is central. Symmetrical expansion. Left Bibasilar crackles. Lung kevin clear to auscultation and percussion. CARDIAC: Normal S1, S2 with no gallops. No murmurs ABDOMEN: Soft. Bowel sounds normal. No organomegaly. No abdominal bruits. Extremities: reveal no edema. No clubbing or cyanosis Neurologically awake, alert, oriented x3 with well-coordinated movements. No focal deficits noted Skin: No rash or skin lesions. Psychiatric: Coperative. Nonsuicidal Musculoskeletal: No joint swelling or deformity. Normal range of motion. - Labs CBC & Chem 7: 08/02/20 06:38 08/02/20 06:38 Labs: Abnormal Lab Results - Last 24 Hours (Table) 08/01/20 08/02/20 08/02/20 Range/Units 06:11 06:38 06:38 WBC 11.7 H (3.8-10.6) k/uL RBC 3.66 L (4.30-5.90) m/uL Hgb 11.5 L (13.0-17.5) gm/dL Hct 35.0 L (39.0-53.0) % Neutrophils # 9.8 H (1.3-7.7) k/uL Lymphocytes # 0.8 L (1.0-4.8) k/uL Potassium 3.2 L (3.5-5.5) mmol/L Chloride 110 H (96-109) mmol/L Carbon Dioxide 20.8 L (21.6-31.8) mmol/L Anion Gap 3.60 L (4.00-12.00) mmol/L BUN/Creatinine Ratio 24.29 H (12.00-20.00) Ratio Calcium 8.5 L (8.7-10.3) mg/dL Total Protein 4.6 L (6.2-8.2) g/dL Albumin 3.00 L (3.80-4.90) g/dL Microbiology - Last 24 Hours (Table) 07/30/20 16:07 Blood Culture - Preliminary Blood No Growth after 48 hours 07/30/20 16:05 Blood Culture - Preliminary Blood No Growth after 48 hours 07/30/20 18:16 Urine Culture - Final Urine,Clean Catch Assessment and Plan Assessment: Atypical pneumonia. Possible aspiration versus HCAP. Sepsis secondary to above. Elevated Pro calcitonin level. Ruled out COVID-19 pneumonia. Status post cystoscopy removal double-J catheter right history of ureteroscopy and laser lithotripsy on 07/29/2020 Right-sided obstructing renal calculus and UTI on 07/19/2020 Hyperlipidemia GERD Moderate-sized hiatal hernia Glaucoma left eye Severe scoliosis Osteoporosis History of TURP, hemorrhoidectomy DVT prophylaxis with heparin subcu Plan: Patient will be continued IV hydration and broad-spectrum antibiotics. Follow- up culture reports. Pro calcitonin level is elevated. Urinalysis is negative. COVID-19 PCR is negative. Follow-up inflammatory markers. Continue with home medications and further recommendations based on the clinical course. Discussed with his at bedside in detail. Time with Patient: Greater than 30
[2020-08-02] MEDS: POTASSIUM CHLORIDE ER 20 MEQ TAB.ER PO SCH ×2 (11:25→12:17)
--- NOTE | 2020-08-02 12:35 | P.PN ---
Subjective Progress Note Date: 08/02/20 No acute overnight events, the patient continues to remain afebrile, his white count continues to trend down. His urine culture is negative. Denies any flank pain or gross hematuria Objective - Vital Signs Vital signs: Vital Signs Temp 97.9 F 08/02/20 07:59 Pulse 77 08/02/20 07:59 Resp 17 08/02/20 07:59 BP 132/67 08/02/20 07:59 Pulse Ox 97 08/02/20 07:59 Intake & Output 08/01/20 08/02/20 08/02/20 18:59 06:59 18:59 Output Total 400 Balance -400 Output: Urine 400 Other: Voiding Method Toilet Toilet Urinal Urinal # Voids 2 - Constitutional General appearance: Present: average body habitus, cooperative, no acute distr ess - EENT Eyes: Present: EOMI. Absent: ptosis ENT: Present: hearing grossly normal - Psychiatric Psychiatric: Present: A&O x's 3 - Labs CBC & Chem 7: 08/02/20 06:38 08/02/20 06:38 Labs: Abnormal Lab Results - Last 24 Hours (Table) 08/02/20 08/02/20 Range/Units 06:38 06:38 WBC 11.7 H (3.8-10.6) k/uL RBC 3.66 L (4.30-5.90) m/uL Hgb 11.5 L (13.0-17.5) gm/dL Hct 35.0 L (39.0-53.0) % Neutrophils # 9.8 H (1.3-7.7) k/uL Lymphocytes # 0.8 L (1.0-4.8) k/uL Potassium 3.2 L (3.5-5.5) mmol/L Anion Gap 3.60 L (4.00-12.00) mmol/L Microbiology - Last 24 Hours (Table) 07/30/20 16:07 Blood Culture - Preliminary Blood No Growth after 48 hours 07/30/20 16:05 Blood Culture - Preliminary Blood No Growth after 48 hours 07/30/20 18:16 Urine Culture - Final Urine,Clean Catch Assessment and Plan Assessment: 80-year-old male admitted to the hospital with fevers. He is status post right ureteroscopy by Dr. Charles for right-sided ureteral stone on July 29. He's been afebrile for more than 24 hours, and his white count continues to trend down. His urine culture is negative Plan: -OR discharge from urology standpoint -Can keep his F/U with Dr Charles
[2020-08-02] MEDS ORDERED: VANCOMYCIN TROUGH DUE 1 EACH MISC MISCELLANE ONE (15:00)
== END 2020-08-02 12:49 | disposition home or self-care (01) | DRG 871 ==
LOC: EC 14:42 → 4SSUR 17:37
PROVIDERS: ADMIT Internal Medicine; ATTEND Internal Medicine
DX: A41.9 Sepsis, unspecified organism (principal); J69.0 Pneumonitis due to inhalation of food and vomit; J18.9 Pneumonia, unspecified organism; M41.9 Scoliosis, unspecified; M81.0 Age-related osteoporosis without current pathological fracture; Z20.822 Contact with and (suspected) exposure to COVID-19; E78.5 Hyperlipidemia, unspecified; K21.9 Gastro-esophageal reflux disease without esophagitis; M85.80 Other specified disorders of bone density and structure, unspecified site; Y95 Nosocomial condition; K44.9 Diaphragmatic hernia without obstruction or gangrene; H40.9 Unspecified glaucoma; Z98.890 Other specified postprocedural states; Z87.442 Personal history of urinary calculi; Z90.79 Acquired absence of other genital organ(s); Z87.440 Personal history of urinary (tract) infections; Z82.0 Family history of epilepsy and other diseases of the nervous system; Z80.9 Family history of malignant neoplasm, unspecified; Z79.82 Long term (current) use of aspirin; Z79.899 Other long term (current) drug therapy
CPT/HCPCS: 36415; 71045; 80048; 80053; 81003; 82465; 82728; 83605; 83615; 83718; 84145; 84478; 85025; 86140; 87040; 87086; 87635; 96361; 96365; 96366; 96368; 99284